=== PATIENT | male | born 1950 | race Caucasian/White ===

== ENCOUNTER 2017-12-27 12:17 | Emergency (ER) | payer MEDICARE ==
[~2017-12-27] VITALS: Ht 182.9 cm; Wt 100.0 kg
[~2017-12-27 12:17] MED LIST: HYDR-3533 PO; OMEP20TA PO; OXYC5 PO; PROT40TA PO; ZOFR4TAB3 PO; ZOFR4TAB3 SL; ZOLO20CO PO
[2017-12-27 12:22] VITALS: BP 163/90; PULSE 107; RESP 16; TEMP 96.1; O2SAT 100
[2017-12-27] MEDS ORDERED: ZOLO100T PO (12:29)
[2017-12-27] MEDS ORDERED: SODIUM CHLOR 0.9% 1000 ML INJ 1,000 ML IV SCH (12:32)
--- NOTE | 2017-12-27 12:33 | PD ---
HPI Chief Complaint: Pain: Acute or Chronic Time Seen by Provider: 12:27 Travel History International Travel<30 days: No Contact w/Intl Traveler<30days: No Traveled to known affect area: No History of Present Illness HPI 67-year-old male presents emergency department for evaluation of epigastric pain , acute onset this morning. Patient has had this in the past. He has been evaluated and fully worked up for it in the emergency department setting. He states that nobody told him what was wrong with him. He did not follow up with gastroenterology. He states this morning it began and then he ate and it became worse. He has been nauseous and vomiting. Pain is a 10 out of 10, sharp , stabbing. Denies any shortness of breath. Denies any hematemesis. No changes in bowel or bladder. No other symptoms to report. PFSH Past Medical History Anxiety: Yes Depression: Yes Cardiovascular Problems: Yes High Cholesterol: Yes Diminished Hearing: No Genitourinary: Yes Hypertension: Yes Psychiatric: Yes Tetanus Vaccination: > 5 Years Influenza Vaccination: No Past Surgical History Surgical History: No Previous Surgery Social History Alcohol Use: Yes Tobacco Use: No Substance Use: Yes (marijuana) Allergies-Medications (Allergen,Severity, Reaction): Coded Allergies: No Known Allergies (Verified Adverse Reaction, Unknown, 12/27/17) Reported Meds & Prescriptions Reported Meds & Active Scripts Active [place] (Hydrocodone-Acetaminophen) 5 Mg-325 Mg Tab 1 Tab PO Q6H PRN Omeprazole 40 Mg Cap 40 Mg PO DAILY Reported Zoloft (Sertraline HCl) 100 Mg Tab 100 Mg PO DAILY Review of Systems Except as stated in HPI: all other systems reviewed are Neg Physical Exam Narrative GENERAL: Well-nourished male patient, in no acute distress. SKIN: Focused skin assessment warm/dry. HEAD: Atraumatic. Normocephalic. EYES: Pupils equal and round. No scleral icterus. No injection or drainage. ENT: No nasal bleeding or discharge. Mucous membranes pink and moist. NECK: Trachea midline. No JVD. CARDIOVASCULAR: Regular rate and rhythm. No murmur appreciated. RESPIRATORY: No accessory muscle use. Clear to auscultation. Breath sounds equal bilaterally. GASTROINTESTINAL: Abdomen soft, nondistended. Epigastric tenderness to palpation. Hepatic and splenic margins not palpable. MUSCULOSKELETAL: No obvious deformities. No clubbing. No cyanosis. No edema. NEUROLOGICAL: Awake and alert. No obvious cranial nerve deficits. Motor grossly within normal limits. Normal speech. Data Data Last Documented VS Orders Orders Complete Blood Count With Diff (12/27/17 12:32) Comprehensive Metabolic Panel (12/27/17 12:32) Lipase (12/27/17 12:32) Prothrombin Time / Inr (Pt) (12/27/17 12:32) Act Partial Throm Time (Ptt) (12/27/17 12:32) Urinalysis - C+S If Indicated (12/27/17 12:32) Ct Abd/Pel W Iv Contrast(Rout) (12/27/17 12:32) Iv Access Insert/Monitor (12/27/17 12:32) Ecg Monitoring (12/27/17 12:32) Oximetry (12/27/17 12:32) Ondansetron Inj (Zofran Inj) (12/27/17 12:45) Sodium Chlor 0.9% 1000 Ml Inj (Ns 1000 M (12/27/17 12:32) Sodium Chloride 0.9% Flush (Ns Flush) (12/27/17 12:45) Ketorolac Inj (Toradol Inj) (12/27/17 12:45) Al-Mag Hy-Si 40-40-4 Mg/Ml Liq (Mag-Al P (12/27/17 12:45) Lidocaine 2% Viscous (Xylocaine 2% Visco (12/27/17 12:45) Iohexol 350 Inj (Omnipaque 350 Inj) (12/27/17 14:17) Sodium Chlor 0.9% 1000 Ml Inj (Ns 1000 M (12/27/17 14:45) Morphine Inj (Morphine Inj) (12/27/17 14:45) Potassium Chlor 10 Meq Premix (Kcl 10 Me (12/27/17 14:39) Ed Discharge Order (12/27/17 14:57) Labs Laboratory Tests Test 12/27/17 12:38 12/27/17 14:45 White Blood Count 12.1 TH/MM3 Red Blood Count 5.88 MIL/MM3 Hemoglobin 16.8 GM/DL Hematocrit 49.8 % Mean Corpuscular Volume 84.7 FL Mean Corpuscular Hemoglobin 28.6 PG Mean Corpuscular Hemoglobin Concent 33.7 % Red Cell Distribution Width 12.5 % Platelet Count 249 TH/MM3 Mean Platelet Volume 10.2 FL Neutrophils (%) (Auto) 75.8 % Lymphocytes (%) (Auto) 18.0 % Monocytes (%) (Auto) 5.3 % Eosinophils (%) (Auto) 0.3 % Basophils (%) (Auto) 0.6 % Neutrophils # (Auto) 9.2 TH/MM3 Lymphocytes # (Auto) 2.2 TH/MM3 Monocytes # (Auto) 0.6 TH/MM3 Eosinophils # (Auto) 0.0 TH/MM3 Basophils # (Auto) 0.1 TH/MM3 CBC Comment DIFF FINAL Differential Comment Prothrombin Time 11.1 SEC Prothromb Time International Ratio 1.1 RATIO Activated Partial Thromboplast Time 24.9 SEC Blood Urea Nitrogen 27 MG/DL Creatinine 1.42 MG/DL Random Glucose 195 MG/DL Total Protein 8.1 GM/DL Albumin 4.1 GM/DL Calcium Level 9.7 MG/DL Alkaline Phosphatase 79 U/L Aspartate Amino Transf (AST/SGOT) 62 U/L Alanine Aminotransferase (ALT/SGPT) 122 U/L Total Bilirubin 1.3 MG/DL Sodium Level 132 MEQ/L Potassium Level 3.1 MEQ/L Chloride Level 96 MEQ/L Carbon Dioxide Level 23.0 MEQ/L Anion Gap 13 MEQ/L Estimat Glomerular Filtration Rate 50 ML/MIN Lipase 85 U/L Urine Color YELLOW Urine Turbidity CLEAR Urine pH 6.0 Urine Specific [place] GREATER THAN 1.050 Urine Protein TRACE mg/dL Urine Glucose (UA) NEG mg/dL Urine Ketones 40 mg/dL Urine Occult Blood NEG Urine Nitrite NEG Urine Bilirubin NEG Urine Urobilinogen LESS THAN 2.0 MG/DL Urine Leukocyte Esterase NEG Urine RBC 1 /hpf Urine Squamous Epithelial Cells 1 /hpf Urine Mucus FEW /lpf Microscopic Urinalysis Comment CULT NOT INDICATED MDM Medical Decision Making Medical Screen Exam Complete: Yes Emergency Medical Condition: Yes Medical Record Reviewed: Yes Differential Diagnosis Gastritis versus indigestion versus pancreatitis versus cholecystitis Narrative Course 67-year-old male presents emergency department for evaluation. Patient appears without distress. He is reporting epigastric pain. He is treated for this. Laboratory Tests Test 12/27/17 12:38 12/27/17 14:45 White Blood Count 12.1 TH/MM3 Red Blood Count 5.88 MIL/MM3 Hemoglobin 16.8 GM/DL Hematocrit 49.8 % Mean Corpuscular Volume 84.7 FL Mean Corpuscular Hemoglobin 28.6 PG Mean Corpuscular Hemoglobin Concent 33.7 % Red Cell Distribution Width 12.5 % Platelet Count 249 TH/MM3 Mean Platelet Volume 10.2 FL Neutrophils (%) (Auto) 75.8 % Lymphocytes (%) (Auto) 18.0 % Monocytes (%) (Auto) 5.3 % Eosinophils (%) (Auto) 0.3 % Basophils (%) (Auto) 0.6 % Neutrophils # (Auto) 9.2 TH/MM3 Lymphocytes # (Auto) 2.2 TH/MM3 Monocytes # (Auto) 0.6 TH/MM3 Eosinophils # (Auto) 0.0 TH/MM3 Basophils # (Auto) 0.1 TH/MM3 CBC Comment DIFF FINAL Differential Comment Prothrombin Time 11.1 SEC Prothromb Time International Ratio 1.1 RATIO Activated Partial Thromboplast Time 24.9 SEC Blood Urea Nitrogen 27 MG/DL Creatinine 1.42 MG/DL Random Glucose 195 MG/DL Total Protein 8.1 GM/DL Albumin 4.1 GM/DL Calcium Level 9.7 MG/DL Alkaline Phosphatase 79 U/L Aspartate Amino Transf (AST/SGOT) 62 U/L Alanine Aminotransferase (ALT/SGPT) 122 U/L Total Bilirubin 1.3 MG/DL Sodium Level 132 MEQ/L Potassium Level 3.1 MEQ/L Chloride Level 96 MEQ/L Carbon Dioxide Level 23.0 MEQ/L Anion Gap 13 MEQ/L Estimat Glomerular Filtration Rate 50 ML/MIN Lipase 85 U/L Urine Color YELLOW Urine Turbidity CLEAR Urine pH 6.0 Urine Specific [place] GREATER THAN 1.050 Urine Protein TRACE mg/dL Urine Glucose (UA) NEG mg/dL Urine Ketones 40 mg/dL Urine Occult Blood NEG Urine Nitrite NEG Urine Bilirubin NEG Urine Urobilinogen LESS THAN 2.0 MG/DL Urine Leukocyte Esterase NEG Urine RBC 1 /hpf Urine Squamous Epithelial Cells 1 /hpf Urine Mucus FEW /lpf Microscopic Urinalysis Comment CULT NOT INDICATED Patient has some mild leukocytosis. CMP is with mild hyponatremia, hypokalemia , consistent with vomiting. BUN is 27 with a creatinine 1.42. Patient is given IV normal saline fluid. Patient has elevated liver enzymes. I have discussed the patient with my attending physician. He agrees this can be worked up further outpatient. Patient has not vomited since being in the emergency department. His pain is much less. He will be discharged at this time. Diagnosis Primary Impression: Epigastric abdominal pain Additional Impressions: Nausea Transaminitis Referrals: Structural Drafter Primary Care Physician Patient Instructions: Diet for Stomach Ulcers and Gastritis (ED), General Instructions Additional Instructions: Avoid acidic and abrasive foods Follow-up with her top executive Return immediately with any acute worsening symptoms Med/Other Pt SpecificInfo: Prescription(s) given Scripts Hydrocodone-Acetaminophen ([place]) 5 Mg-325 Mg Tab 1 TAB PO Q6H Y for PAIN GREATER THAN 5, #6 TAB 0 Refills Prov: Mag Posadas 12/27/17 Omeprazole (Omeprazole) 40 Mg Cap 40 MG PO DAILY, #30 CAP 0 Refills Prov: Mag Posadas 12/27/17 Disposition: 01 DISCHARGE HOME Condition: Stable Mag Posadas Dec 27, 2017 12:33
[2017-12-27 12:39] VITALS: RESP 20; O2SAT 100
[2017-12-27] MEDS ORDERED: LIDOCAINE VISCOUS 2% SOLN 15 ML UDC PO ONE (12:45)
[2017-12-27] MEDS ORDERED: KETOROLAC TROMETHAMINE 30 MG/ML (IVP) VIAL IVP ONE (12:45)
[2017-12-27] MEDS ORDERED: ONDANSETRON HCL 4 MG/2 ML VIAL IVP ONE (12:45)
[2017-12-27] MEDS ORDERED: SODIUM CHLORIDE 0.9% FLUSH 10 ML FLUSH IV FLUSH PRN (12:45)
[2017-12-27] MEDS ORDERED: ALUMINUM/MAGNESIUM/SIMETH 30 ML CUP PO ONE (12:45)
[2017-12-27 12:55] LABS: AUTOMATED NEUTROPHIL # 9.2 TH/MM3 (1.8-7.7); BASOPHIL # 0.1 TH/MM3 (0-0.2); BASOPHIL % 0.6 % (0.0-2.0); EOSINOPHIL % 0.3 % (0.0-4.0); HEMATOCRIT 49.8 % (39.0-51.0); HEMOGLOBIN 16.8 GM/DL (13.0-17.0); LYMPHOCYTE # 2.2 TH/MM3 (1.0-4.8); MEAN CELL VOLUME 84.7 FL (80.0-100.0); MEAN CORPUSCULAR HEMOGLOBIN 28.6 PG (27.0-34.0); MEAN CORPUSCULAR HGB CONC 33.7 % (32.0-36.0); MEAN PLATELET VOLUME 10.2 FL (7.0-11.0); MONO % 5.3 % (0.0-8.0); MONOCYTE # 0.6 TH/MM3 (0-0.9); NEUT % 75.8 % (16.0-70.0); PLATELET COUNT 249 TH/MM3 (150-450); RED BLOOD COUNT 5.88 MIL/MM3 (4.50-5.90); RED CELL DISTRIBUTION WIDTH 12.5 % (11.6-17.2); WHITE BLOOD COUNT 12.1 TH/MM3 (4.0-11.0)
[2017-12-27 13:04] LABS: INTERNATIONAL NORMALIZED RATIO 1.1 RATIO; PROTHROMBIN TIME - PATIENT 11.1 SEC (9.8-11.6)
[2017-12-27 13:14] LABS: ALBUMIN 4.1 GM/DL (3.4-5.0); ALT (GPT) 122 U/L (12-78); AST (GOT) 62 U/L (15-37); BLOOD UREA NITROGEN 27 MG/DL (7-18); CALCIUM 9.7 MG/DL (8.5-10.1); CHLORIDE 96 MEQ/L (98-107); CREATININE 1.42 MG/DL (0.60-1.30); GLOMERULAR FILTRATION RATE 50 ML/MIN (>89); GLUCOSE,RANDOM 195 MG/DL (74-106); SODIUM (NA) 132 MEQ/L (136-145)
[2017-12-27 13:17] LABS: ALKALINE PHOSPHATASE 79 U/L (45-117); TOTAL BILIRUBIN ADULT 1.3 MG/DL (0.2-1.0); TOTAL PROTEIN 8.1 GM/DL (6.4-8.2)
[2017-12-27] MEDS ORDERED: IOHEXOL 350 MG/ML 10 ML VIAL (for RAD DIAG) IVCONTRAST ONE (14:17)
--- NOTE | 2017-12-27 14:30 | RADRPT ---
EXAM DATE/TIME: 12/27/2017 14:02 [facility] COMPARISON: CT ABDOMEN & PELVIS W/O CONTRAST, April 12, 2016, 9:27. INDICATIONS : Abdomen pain IV CONTRAST: 94 cc Omnipaque 350 (iohexol) IV ORAL CONTRAST: No oral contrast ingested. RADIATION DOSE: 7.57 CTDIvol (mGy) MEDICAL HISTORY : Cardiovascular disease. Hypertension. SURGICAL HISTORY : None. ENCOUNTER: Initial ACUITY: 1 day PAIN SCALE: 6/10 LOCATION: Abdomrn TECHNIQUE: Volumetric scanning of the abdomen and pelvis was performed. Using automated exposure control and ad justment of the mA and/or kV according to patient size, radiation dose was kept as low as reasonably achievable to obtain optimal diagnostic quality images. DICOM format image data is available electro nically for review and comparison. FINDINGS: There is minimal linear atelectasis or scarring at the bases. Mild coronary calcifications. No acute findings in the liver, spleen, adrenals, kidneys or pancreas. No calcified gallstones or cristel iary ductal dilatation. No acute bony abnormalities. CONCLUSION: 1. No acute findings in abdomen and pelvic CT. Emeterio Child MD on December 27, 2017 at 14:22 Board Certified Radiologist. This report was verified electronically.
[2017-12-27 14:37] VITALS: BP 177/94; PULSE 92; RESP 16; TEMP 98; O2SAT 99
[2017-12-27] MEDS ORDERED: POTASSIUM CHLOR 10 MEQ PREMIX 100 ML IV STA (14:39)
[2017-12-27] MEDS ORDERED: SODIUM CHLOR 0.9% 1000 ML INJ 1,000 ML IV ONE (14:45)
[2017-12-27] MEDS ORDERED: MORPHINE SULFATE 2 MG/ML INJ IV PUSH ONE (14:45)
[2017-12-27] MEDS ORDERED: OMEP40CA2 PO (15:00)
[2017-12-27] MEDS ORDERED: NORC5TAB PO (15:01)
[2017-12-27 15:08] VITALS: RESP 16
[2017-12-27 15:33] LABS: BILIRUBIN, URINE NEG (NEG); BLOOD, URINE NEG (NEG); GLUCOSE,URINE NEG (NEG); KETONE, URINE 40 mg/dL (NEG); MUCUS URINE FEW /lpf (OCC); NITRITE,URINE NEG (NEG); SQUAMOUS EPITHELIAL CELL URINE 1 /hpf (0-5); URINE COLOR YELLOW (YELLW/STRAW); URINE LEUKOCYTE ESTERASE NEG (NEG)
[2017-12-27 16:20] VITALS: BP 130/81; TEMP 97.8
== END 2017-12-27 16:20 | disposition home or self-care (01) ==
LOC: NEPE 12:17
DX: R10.13 Epigastric pain (principal); R11.0 Nausea; R74.0 Nonspecific elevation of levels of transaminase and lactic acid dehydrogenase [LDH]; E87.6 Hypokalemia; E87.1 Hypo-osmolality and hyponatremia; D72.829 Elevated white blood cell count, unspecified; I10 Essential (primary) hypertension; E78.00 Pure hypercholesterolemia, unspecified; F12.90 Cannabis use, unspecified, uncomplicated
CPT/HCPCS: 74177; 80053; 81001; 83690; 85025; 85610; 85730; 96361; 96365; 96375; 99285; J1885; J2270; J2405; J3480; J7030; Q9967

== ENCOUNTER 2018-10-03 04:49 | Inpatient (IN) ==
[2018-10-03] MEDS ORDERED: Morphine Inj 4 MG/ML Vial IV.PUSH ONE (05:03)
[2018-10-03] MEDS ORDERED: Sod Chloride 0.9% Inj 1,000 ML IV.SIG ONE (05:03)
[2018-10-03 05:24] LABS: Baso # (Auto) 0.1 th/mm3 (0.0-0.2); Baso % (Auto) 0.4 % (0.0-2.0); Hematocrit 48.2 % (39.0-51.0); Lymph % (Auto) 11.4 % (9.0-44.0); Mean Corpuscular HGB Conc 35.3 % (32.0-36.0); Mean Corpuscular Hemoglobin 30.1 pg (27.0-34.0); Mean Corpuscular Volume 85.2 fL (80.0-100.0); Mean Platelet Volume 9.3 fL (7.0-11.0); Mono # (Auto) 0.9 th/mm3 (0.0-0.9); Mono % (Auto) 5.2 % (0.0-8.0); Neut # (Auto) 14.3 th/mm3 (1.8-7.7); Platelet Count 302 th/mm3 (150-450); Red Blood Count 5.66 mil/mm3 (4.50-5.90); Red Cell Distribution Width 13.9 % (11.6-17.2); White Blood Count 17.3 th/mm3 (4.0-11.0)
[2018-10-03 05:29] VITALS: RESP 17; TEMP 98
[2018-10-03 05:35] LABS: Alanine Aminotransferase 54 U/L (12-78); Albumin 4.9 g/dL (3.4-5.0); Anion Gap 11 meq/L (5-15); Aspartate Aminotransferase 57 U/L (15-37); Blood Urea Nitrogen 57 mg/dL (7-18); Calcium 10.3 mg/dL (8.5-10.1); Carbon Dioxide 23.6 meq/L (21.0-32.0); Chloride 106 meq/L (98-107); Glomerular Filtration Rate 25 mL/min (>89); Glucose,Random 235 mg/dL (74-106); Lipase 111 U/L (73-393); Magnesium 3.9 mg/dL (1.5-2.5); Potassium 4.1 meq/L (3.5-5.1); Sodium 141 meq/L (136-145)
[2018-10-03 05:39] LABS: Alkaline Phosphatase 103 U/L (45-117); Total Protein 9.7 g/dL (6.4-8.2); Troponin I 0.31 ng/mL (0.02-0.05)
[2018-10-03 05:43] LABS: INR 0.9 Ratio; Prothrombin Time 9.6 sec (9.8-11.6)
[2018-10-03] MEDS ORDERED: Acetaminophen 325 MG Tablet PO PRN (05:45)
[2018-10-03] MEDS ORDERED: Sod Chloride 0.9% Inj 1,000 ML IV.SIG SCH ×2 (05:45→06:00)
[2018-10-03] MEDS ORDERED: Sod Chloride 0.9% Inj 1,000 ML IV.CONT SCH (05:45)
[2018-10-03] MEDS ORDERED: Naloxone Inj 0.4 MG/ML Vial IV.PUSH PRN (05:47)
[2018-10-03] MEDS ORDERED: HYDROmorphone PF Inj 1 MG/ML Ampul IV.PUSH PRN (05:47)
--- NOTE | 2018-10-03 05:50 | CT ---
EXAM DATE: 10/03/2018 5:24 AM EST AGE/SEX: 68 years / Male INDICATIONS: Mid abdominal pain X 3 days. CLINICAL DATA: This is the patient's initial encounter. Patient reports that signs and symptoms have been present for 3 days and indicates a pain score of 8/10. MEDICAL/SURGICAL HISTORY: Gastroesophageal reflux disease. Hypercholesterolemia. Gastric ulcer None. RADIATION DOSE: 9.76 CTDI (mGy) [place] [facility] [place]/12/2016. . TECHNIQUE: Multiple contiguous axial images were obtained through the abdomen. Images were obtained using multiple row detector helical technique. Using automated exposure control and adjustment of the mA and/or kV according to patient size, radiation dose was kept as low as reasonably achievable to o btain optimal diagnostic quality images. DICOM format image data is available electronically for rev iew and comparison. FINDINGS: Lower Lungs: The visualized lower lungs are clear. Liver: The liver has a homogeneous density without space-occupying lesion. There is no dilation of th e biliary tree. The gallbladder is unremarkable in appearance. Spleen: Homogeneous density without enlargement. Pancreas: Unremarkable without mass or calcification. Kidneys: Normal in size and shape. No evidence of mass or hydronephrosis. Adrenal Glands: Unremarkable. Aorta: The aorta and proximal iliac vessels are grossly unremarkable without aneurysmal dilation. Bowel/Mesentery: No oral contrast was given limiting the sensitivity exam. There are multiple air-flu id levels throughout the colon. There is no focal inflammatory change. The small bowel is decompresse d. There is no free air or fluid. The bowel loops are grossly unremarkable. The cecum and sigmoid co brian have a normal configuration. Abdominal Wall: Intact. Retroperitoneum: No evidence of adenopathy in the retrocrural, para-aortic, or deep pelvic regions. Bladder: Contours are smooth. Reproductive Organs: No abnormal masses or calcifications seen. Inguinal: The inguinal region is unremarkable without evidence of adenopathy. Bony Structures: Unremarkable. CONCLUSION: 1. Nonspecific bowel gas pattern most consistent with ileus and/or gastroenteritis. 2. Unremarkable gallbladder. Electronically signed by: Jaswinder Sol MD Board Certified Radiologist 10/03/2018 5:49 AM EST
[2018-10-03] MEDS ORDERED: Heparin - SQ 10,000 UNITS/ML Vial SQ SCH (06:00)
--- NOTE | 2018-10-03 06:04 | ED ---
HPI General Chief Complaint: Abdominal Pain Stated Complaint: Abdominal Pain Time Seen by Provider: 10/03/18 05:03 Source: patient Mode of arrival: ambulatory Limitations: no limitations History of Present Illness HPI narrative: 68-year-old male came to the emergency room with history of severe abdominal pain for past 2 days. Patient says that he has had these kind of pains recurring for past 3 years. He usually does not drink alcohol but he drank a lot of margaritas starting from September 22 - September 28. Patient says that in past 2 days he did not eat or drink anything and hence has not vomited. He smoked marijuana on [place]. Patient says that he thinks he has cannabis hyperemesis syndrome and hence cut down a lot on smoking marijuana. No history of diarrhea. He had a bowel movement this morning. He appeared very anxious. Patient had a heart rate in 160s in triage. He was also extremely hypertensive. Patient describes the location of his pain all over his abdomen with no radiation. No aggravating or relieving symptoms identified. Patient says currently his pain is 9 out of 10. Related Data Home Medications Medication Instructions Recorded Confirmed atorvastatin 20 mg PO DAILY 10/03/18 10/03/18 hydrocodone-acetaminophen 1 tab PO Q6H 10/03/18 10/03/18 pantoprazole 40 mg PO DAILY 10/03/18 10/03/18 sertraline 200 mg PO DAILY 10/03/18 10/03/18 Allergies Allergy/AdvReac Type Severity Reaction Status Date / Time No Known Allergies Allergy Verified 10/03/18 05:05 Review of Systems ROS: all other systems reviewed are negative [facility] Medical History Medical History Depression (Acute) GERD (gastroesophageal reflux disease) (Acute) High cholesterol (Acute) Hx of gastric ulcer (Acute) Surgical History Surgical History No history of previous surgery (Acute) Social History Social History Substance History: Active Abuse Second Hand Smoke Exposure: No Smoking Status: Never smoker How Often Do You Have a Drink Containing Alcohol: Monthly or less Recent Travel in [facility] within the Last 8 Weeks: No Recent Out of Country Travel within the Last 8 Weeks: No Substance Abuse Detail Marijuana: Substance Use Status: Active Route Used Substance Abuse: Inhalation Reason for Use: Get High Immunization History Tetanus Immunization: Unsure Exam Narrative Exam Narrative: GENERAL: Awake, alert, anxious, significant distress SKIN: Focused skin assessment warm/dry. HEAD: Atraumatic. Normocephalic. EYES: Pupils equal and round. No scleral icterus. No injection or drainage. ENT: No nasal bleeding or discharge. Dry mucous membrane. NECK: Trachea midline. No JVD. CARDIOVASCULAR: Regular rate and rhythm. No murmur appreciated. RESPIRATORY: No accessory muscle use. Clear to auscultation. Breath sounds equal bilaterally. GASTROINTESTINAL: Abdomen soft, non-tender, nondistended. Hepatic and splenic margins not palpable. MUSCULOSKELETAL: No obvious deformities. No clubbing. No cyanosis. No edema. NEUROLOGICAL: Awake and alert. No obvious cranial nerve deficits. Motor grossly within normal limits. Normal speech. PSYCHIATRIC: Appropriate mood and affect; insight and judgment normal. Course Initial Documented Vital Signs Temperature 97.2 F L 10/03/18 04:52 Pulse Rate 162 H 10/03/18 04:52 Respiratory Rate 20 10/03/18 04:52 Blood Pressure 197/103 H 10/03/18 04:52 Pulse Oximetry 97 10/03/18 04:52 Last Documented Vital Signs Temperature 98 F 10/03/18 05:28 Pulse Rate 98 H 10/03/18 05:28 Respiratory Rate 17 10/03/18 05:28 Blood Pressure 199/93 H 10/03/18 05:28 Pulse Oximetry 95 10/03/18 05:28 Critical Care Time Critical Care Time: Yes Total Critical Care Time: 3 Attestation: Aggregate critical care time was 30 minutes. Time to perform other separately billable procedures was not included in the critical care time. My time did not include minutes spent treating any other patients simultaneously or on activities that did not directly contribute to the patient's treatment. The services I provided to this patient were to treat and/or prevent clinically significant deterioration that could result in: Severe dehydration, fluid resuscitation I provided critical care services requiring my management, as noted below: Chart data review, documentation time, medication orders and management, vital sign assessments/reviewing monitor data, ordering and reviewing lab tests, ordering and interpreting/reviewing x-rays and diagnostic studies, care of the patient and discussion of the patient with the admitting physicians. Medical Decision Making MDM Narrative Medical decision making narrative: 6:01 AM patient was given IV fluid bolus. After 1 L of IV fluid bolus his heart rate came down to 95 and the repeat EKG showed normal sinus rhythm. Blood test results are back and some of the concerning values include leukocytosis with a significant left shift, acute renal failure as well as elevated troponin. In my opinion patient could be in sepsis given the multiorgan involvement. CT scan was ordered without contrast and has been read by the radiologist as possible ileus. I have ordered lactic acid and blood culture and 1/3 L of IV fluid bolus. I discussed the case with the hospitalist was accepted the patient. Medical Screen Exam Complete: Yes Emergency Medical Condition: Yes Lab Data Result diagrams: 10/03/18 05:10 10/03/18 05:10 Lab Results 10/03/18 10/03/18 10/03/18 Range/Units 05:10 05:10 05:10 WBC 17.3 H (4.0-11.0) th/mm3 RBC 5.66 (4.50-5.90) mil/mm3 Hgb 17.0 (13.0-17.0) gm/dL Hct 48.2 (39.0-51.0) % MCV 85.2 (80.0-100.0) fL MCH 30.1 (27.0-34.0) pg MCHC 35.3 (32.0-36.0) % RDW 13.9 (11.6-17.2) % Plt Count 302 (150-450) th/mm3 MPV 9.3 (7.0-11.0) fL Neut % (Auto) 83.0 H (16.0-70.0) % Lymph % (Auto) 11.4 (9.0-44.0) % [place] % (Auto) 5.2 (0.0-8.0) % Eos % (Auto) 0.0 (0.0-4.0) % Baso % (Auto) 0.4 (0.0-2.0) % Neut # (Auto) 14.3 H (1.8-7.7) th/mm3 Lymph # (Auto) 2.0 (1.0-4.8) th/mm3 [place] # (Auto) 0.9 (0.0-0.9) th/mm3 Eos # (Auto) 0.0 (0.0-0.4) th/mm3 Baso # (Auto) 0.1 (0.0-0.2) th/mm3 WBC Differential . Differential Comment Auto diff final PT 9.6 L (9.8-11.6) sec INR 0.9 Ratio Sodium 141 (136-145) meq/L Potassium 4.1 (3.5-5.1) meq/L Chloride 106 (98-107) meq/L Carbon Dioxide 23.6 (21.0-32.0) meq/L Anion Gap 11 (5-15) meq/L BUN 57 H (7-18) mg/dL Creatinine 2.58 H (0.60-1.30) mg/dL Estimated GFR 25 L (>89) mL/min Random Glucose 235 H (74-106) mg/dL Calcium 10.3 H (8.5-10.1) mg/dL Magnesium 3.9 H (1.5-2.5) mg/dL Total Bilirubin 0.6 (0.2-1.0) mg/dL AST 57 H (15-37) U/L ALT 54 (12-78) U/L Alkaline Phosphatase 103 (45-117) U/L Troponin I 0.31 H (0.02-0.05) ng/mL Total Protein 9.7 H (6.4-8.2) g/dL Albumin 4.9 (3.4-5.0) g/dL Lipase 111 (73-393) U/L Blood Type Blood Type Recheck 10/03/18 Range/Units 05:10 WBC (4.0-11.0) th/mm3 RBC (4.50-5.90) mil/mm3 Hgb (13.0-17.0) gm/dL Hct (39.0-51.0) % MCV (80.0-100.0) fL MCH (27.0-34.0) pg MCHC (32.0-36.0) % RDW (11.6-17.2) % Plt Count (150-450) th/mm3 MPV (7.0-11.0) fL Neut % (Auto) (16.0-70.0) % Lymph % (Auto) (9.0-44.0) % [place] % (Auto) (0.0-8.0) % Eos % (Auto) (0.0-4.0) % Baso % (Auto) (0.0-2.0) % Neut # (Auto) (1.8-7.7) th/mm3 Lymph # (Auto) (1.0-4.8) th/mm3 [place] # (Auto) (0.0-0.9) th/mm3 Eos # (Auto) (0.0-0.4) th/mm3 Baso # (Auto) (0.0-0.2) th/mm3 WBC Differential Differential Comment PT (9.8-11.6) sec INR Ratio Sodium (136-145) meq/L Potassium (3.5-5.1) meq/L Chloride (98-107) meq/L Carbon Dioxide (21.0-32.0) meq/L Anion Gap (5-15) meq/L BUN (7-18) mg/dL Creatinine (0.60-1.30) mg/dL Estimated GFR (>89) mL/min Random Glucose (74-106) mg/dL Calcium (8.5-10.1) mg/dL Magnesium (1.5-2.5) mg/dL Total Bilirubin (0.2-1.0) mg/dL AST (15-37) U/L ALT (12-78) U/L Alkaline Phosphatase (45-117) U/L Troponin I (0.02-0.05) ng/mL Total Protein (6.4-8.2) g/dL Albumin (3.4-5.0) g/dL Lipase (73-393) U/L Blood Type O Positive Blood Type Recheck Required Imaging Data Radiologist's impression: Abdomen/Pelvis CT 10/03/18 05:03 CONCLUSION: 1. Nonspecific bowel gas pattern most consistent with ileus and/or gastroenteritis. 2. Unremarkable gallbladder. ECG Data Attestation: I personally reviewed and interpreted this ECG as follows: Interpretation: Twelve-lead EKG was reviewed by me. Normal sinus rhythm, tachycardia, left axis deviation, nonspecific ST-T wave changes. Heart rate of 155 bpm. Discharge Plan Discharge Disposition Patient Disposition: ED Admit(ED Internal Use Only) Discharge Order Discharge Orders: ED Use Only Admit Order (Routine); Ordered 10/03/18 Ordered By: Gerson Ayala Physicians Team ED Provider: Gerson Ayala Primary Care Provider: Primary Care Yenny Colón Rxs /Orders / Referrals /Forms Prescriptions: No Action atorvastatin 20 mg Tablet 20 mg PO DAILY RF: 0 hydrocodone-acetaminophen 5-325 mg Tablet 1 tab PO Q6H RF: 0 sertraline 100 mg Tablet 200 mg PO DAILY RF: 0 pantoprazole 40 mg Tablet,Delayed Release (Dr/Ec) 40 mg PO DAILY RF: 0 Discharge Interventions Interventions: Vital Signs Last Done: 10/03/18 05:28 Status ED Status: With Doctor
[2018-10-03 06:11] VITALS: BP 199/93; PULSE 98; O2SAT 95
[2018-10-03] MEDS ORDERED: Docusate Sodium 100 MG Capsule PO SCH (09:00)
--- NOTE | 2018-10-03 19:55 | ECG ---
Date Performed: 10/03/2018 Time Performed: 05:02:20 PTAGE: 68 years EKG: Supraventricular tachycardia, likely paroxysmal, although sinus tachycardia cannot be rule out Slight right ventricular conduction disturbance MARKED LEFT AXIS DEVIATION NONSPECIFIC ST & T-WAV E ABNORMALITY Compared to previous tracing, the marked tachycardia is new. Clinical correlation is re commended ABNORMAL ECG PREVIOUS TRACING : 05/06/2015 07.30 DOCTOR: Donny Vazquez Interpretating Date/Time 10/03/2018 19:54:06
--- NOTE | 2018-10-03 19:56 | ECG ---
Date Performed: 10/03/2018 Time Performed: 05:53:09 PTAGE: 68 years EKG: Sinus rhythm INCOMPLETE RIGHT BUNDLE BRANCH BLOCK NONSPECIFIC T-WAVE ABNORMALITY Compared to previous tracing, ap prox. 51 minutes later, HR has decreased from 155 to 95 BORDERLINE ECG NO PREVIOUS TRACING DOCTOR: Donny Vazquez Interpretating Date/Time 10/03/2018 19:54:37
--- NOTE | 2018-10-03 22:55 | P.HPIM ---
History of Present Illness Primary Care Physician: No Primary Care Physician Inpatient Certification Inpatient Certification: I certify that the inpatient services were ordered in accordance with Medicare regulations governing the order. This includes certification that hospital inpatient services are reasonable and necessary and in the case of services not specified as inpatient-only under 42 CFR 419.22(n), that they are appropriately provided as inpatient services in accordance to with the 2-midnight benchmark under 43 CFR 412.3(e) Estimated Total Length of Stay (Days): 4 Plans for Post Hospital Care: Home [facility] Medical History Medical History Depression (Acute) GERD (gastroesophageal reflux disease) (Acute) High cholesterol (Acute) Hx of gastric ulcer (Acute) Surgical History Surgical History No history of previous surgery (Acute) Social History Social History Substance History: No History of Abuse Second Hand Smoke Exposure: No Smoking Status: Never smoker How Often Do You Have a Drink Containing Alcohol: Monthly or less Recent Travel in [place] within the Last 8 Weeks: No Recent Out of Country Travel within the Last 8 Weeks: No Substance Abuse Detail Marijuana: Substance Use Status: Active Route Used Substance Abuse: Inhalation Reason for Use: Get High Immunization History Tetanus Immunization: Unsure Medications and Allergies Allergies Allergy/AdvReac Type Severity Reaction Status Date / Time No Known Allergies Allergy Verified 10/03/18 05:05 Home Medications Medication Instructions Recorded Confirmed Type atorvastatin 20 mg PO DAILY 10/03/18 10/03/18 History hydrocodone-acetaminophen 1 tab PO Q6H 10/03/18 10/03/18 History pantoprazole 40 mg PO DAILY 10/03/18 10/03/18 History sertraline 200 mg PO DAILY 10/03/18 10/03/18 History Active Medications: Active Medications Acetaminophen (Tylenol) 650 mg PO Q4H PRN PRN Reason: Temp > 100.4 Docusate Sodium (Colace) 100 mg PO TID PEPE Heparin Sodium (Porcine) (Heparin Inj) 5,000 units SQ Q8H PEPE Hydromorphone HCl (Dilaudid Pf Inj) 1 mg IV.PUSH Q3H PRN PRN Reason: PAIN 6-10;IF UNABLE TO TAKE PO Sodium Chloride (Ns Inj) 1,000 mls @ 100 mls/hr IV.CONT .Q10H PEPE Naloxone HCl (Narcan Inj) 0.4 mg IV.PUSH UNSCH PRN PRN Reason: SEE LABEL COMMENTS Ondansetron HCl (Zofran Inj) 4 mg IV.PUSH Q6H PRN PRN Reason: NAUSEA OR VOMITING Oxycodone HCl (Roxicodone) 5 mg PO Q4H PRN PRN Reason: PAIN SCALE 3 TO 5 Sodium Chloride (Ns Flush) 2 ml IV.FLUSH PRN PRN PRN Reason: FLUSH AFTER USING IV ACCESS Sodium Chloride (Ns Flush) 2 ml IV.FLUSH BID PEPE Sodium Chloride (Ns Flush) 2 ml IV.FLUSH PRN PRN PRN Reason: FLUSH AFTER USING IV ACCESS Physical Exam Vital signs: Last Vital Signs Temp 98 F 10/03/18 05:28 Pulse 90 10/03/18 06:06 Resp 17 10/03/18 06:07 BP 170/91 H 10/03/18 06:06 Pulse Ox 96 10/03/18 06:06 Intake & Output 10/01/18 10/02/18 10/03/18 10/04/18 06:59 06:59 06:59 06:59 Intake Total 1999 Balance 1999 Weight 97.522 kg Results Labs CBC & Chem 7: 10/03/18 05:10 10/03/18 05:10 Imaging Impressions Abdomen/Pelvis CT 10/03/18 05:03 CONCLUSION: 1. Nonspecific bowel gas pattern most consistent with ileus and/or gastroenteritis. 2. Unremarkable gallbladder. Caprini VTE Risk Assessment Caprini Risk Assessment Model: Point Value = 1 Point Value = 2 Point Value = 3 Point Value = 5 Age 41-60 Minor surgery BMI > 25 kg/m2 Swollen legs Varicose veins or History of unexplained or recurrent spontaneous Oral contraceptives or hormone replacement Sepsis (< 1 month) Serious lung disease, including pneumonia (< 1 month) Abnormal pulmonary function Acute myocardial infarction Congestive heart failure (< 1 month) History of inflammatory bowel disease Medical patient at bed rest Age 61-74 Arthroscopic surgery Major open surgery (> 45 min) Laparoscopic surgery (> 45 min) Malignancy Confined to bed (> 72 hours) Immobilizing plaster cast Central venous access Age >= 75 History of VTE Family history of VTE Factor V Leiden Prothrombin 10200L Lupus anticoagulant Anticardiolipin antibodies Elevated serum homocysteine Heparin-induced thrombocytopenia Other congenital or acquired thrombophilia Stroke (< 1 month) Elective arthroplasty Hip, pelvis, or leg fracture Acute spinal cord injury (< 1 month) Prophylaxis Regimen: Total Risk Factor Score Risk Level Prophylaxis Regimen 0-1 Low Early ambulation 2 Moderate Order ONE of the following: *Sequential Compression Device (SCD) *Heparin 5000 units SQ BID 3-4 Higher Order ONE of the following medications: *Heparin 5000 units SQ TID *Enoxaparin/Lovenox 40 mg SQ daily (WT < 150 kg, CrCl > 30 mL/min) *Enoxaparin/Lovenox 30 mg SQ daily (WT < 150 kg, CrCl > 10-29 mL/min) *Enoxaparin/Lovenox 30 mg SQ BID (WT < 150 kg, CrCl > 30 mL/min) AND/OR *Sequential Compression Device (SCD) 5 or more Highest Order ONE of the following medications: *Heparin 5000 units SQ TID (Preferred with Epidurals) *Enoxaparin/Lovenox 40 mg SQ daily (WT < 150 kg, CrCl > 30 mL/min) *Enoxaparin/Lovenox 30 mg SQ daily (WT < 150 kg, CrCl > 10-29 mL/min) *Enoxaparin/Lovenox 30 mg SQ BID (WT < 150 kg, CrCl > 30 mL/min) AND *Sequential Compression Device (SCD)
== END 2018-10-03 08:00 | disposition left against medical advice (07) | DRG 392 ==
LOC: NEPC 04:49 → NEDA 06:07
PROVIDERS: ADMIT Internal Medicine; ATTEND Internal Medicine
CPT/HCPCS: 74176; 80053; 83605; 83690; 83735; 84484; 85025; 85610; 86850; 86900; 86901; 87040; 90774; 90775; 90784; 93005; 96374; 96375; 99291; C8952; J2270; J2405; J7030

== ENCOUNTER 2018-10-03 17:46 | Inpatient (IN) ==
[2018-10-03] MEDS ORDERED: Sodium Chlor 0.9% Inj 500 ML IV.SIG ONE (19:20)
[2018-10-03] MEDS ORDERED: HYDROmorphone PF Inj 2 MG/ML Vial IV.PUSH ONE (19:20)
--- NOTE | 2018-10-03 19:24 | ED ---
HPI General Chief Complaint: Abdominal Pain Stated Complaint: stomach pain/recheck Time Seen by Provider: 10/03/18 18:17 Source: patient Mode of arrival: ambulatory Limitations: no limitations History of Present Illness HPI narrative: 68-year-old male presents the ED for evaluation of 10 abdominal pain. Onset about an hour before presentation. Pain is sharp, diffuse, no alleviating or exacerbating factors reported. He reports associated nausea. He denies fever or chills. He states that he is urinated normally today. He states that he has not had a bowel movement. Patient was seen in the emergency room last night, admitted to the hospital today but left AGAINST MEDICAL ADVICE. He states that he left this morning because he was feeling fine. He states he went home, drank some Gatorade and slept for about 10 hours. He states that when he awoke his abdomen "locked up." He states that he is ready to be admitted to the hospital. Related Data Home Medications Medication Instructions Recorded Confirmed atorvastatin 20 mg PO DAILY 10/03/18 10/03/18 hydrocodone-acetaminophen 1 tab PO Q6H 10/03/18 10/03/18 pantoprazole 40 mg PO DAILY 10/03/18 10/03/18 sertraline 200 mg PO DAILY 10/03/18 10/03/18 Allergies Allergy/AdvReac Type Severity Reaction Status Date / Time No Known Allergies Allergy Verified 10/03/18 05:05 Review of Systems ROS: all other systems reviewed are negative [facility] Medical History Medical History Depression (Acute) GERD (gastroesophageal reflux disease) (Acute) High cholesterol (Acute) Hx of gastric ulcer (Acute) Surgical History Surgical History No history of previous surgery (Acute) Social History Social History Substance History: No History of Abuse Second Hand Smoke Exposure: No Smoking Status: Never smoker How Often Do You Have a Drink Containing Alcohol: Monthly or less Recent Travel in [facility] within the Last 8 Weeks: No Recent Out of Country Travel within the Last 8 Weeks: No Immunization History Tetanus Immunization: Unsure Exam Narrative Exam Narrative: GENERAL: Well-nourished, well-developed white male in no acute distress. SKIN: Focused skin assessment warm/dry. HEAD: Atraumatic. Normocephalic. EYES: Pupils equal and round. No scleral icterus. No injection or drainage. ENT: No nasal bleeding or discharge. Mucous membranes pink and moist. NECK: Trachea midline. No JVD. CARDIOVASCULAR: Regular rate and rhythm. No murmur appreciated. RESPIRATORY: No accessory muscle use. Clear to auscultation. Breath sounds equal bilaterally. GASTROINTESTINAL: Abdomen distended, diffusely tender. Hepatic and splenic margins not palpable. Active bowel sounds. MUSCULOSKELETAL: No obvious deformities. No clubbing. No cyanosis. No edema. NEUROLOGICAL: Awake and alert. No obvious cranial nerve deficits. Motor grossly within normal limits. Normal speech. PSYCHIATRIC: Anxious mood and affect; insight and judgment normal. Course Initial Documented Vital Signs Temperature 98.6 F 10/03/18 18:07 Pulse Rate 94 H 10/03/18 18:07 Respiratory Rate 18 10/03/18 18:07 Blood Pressure 236/123 H 10/03/18 18:07 Pulse Oximetry 97 10/03/18 18:07 Last Documented Vital Signs Temperature 99.4 F 10/04/18 02:14 Pulse Rate 72 10/04/18 02:43 Respiratory Rate 16 10/04/18 02:14 Blood Pressure 142/88 H 10/04/18 02:16 Pulse Oximetry 95 10/04/18 02:16 Medical Decision Making [facility] Narrative Medical decision making narrative: 68-year-old male presents the ED for evaluation of 10/10 abdominal pain. Patient was seen earlier today with similar complaint but left AGAINST MEDICAL ADVICE. On presentation BP 226/123. Physical exam reveals protuberant belly that is diffusely tender, otherwise unremarkable. IV was established. Patient was administered 10 mg of labetalol. Recheck BP 218/108. Patient was administered a second dose of labetalol. BP 186/91. CBC with WBC of 12.3, improved from this morning. CMP with BUN of 38, creatinine 1.37, again improved from this morning. EKG without acute changes. Troponin 0.20, decreased from 0.[address] abdomen pelvis with no acute findings. I spoke with Dr. Mckeon who agrees to accept the patient to the medicine service. Please see medicine notes for disposition. Medical Screen Exam Complete: Yes Emergency Medical Condition: Yes Lab Data Result diagrams: 10/04/18 01:42 10/04/18 01:42 Lab Results 10/03/18 10/03/18 10/03/18 Range/Units 19:35 19:35 19:35 WBC 12.3 H (4.0-11.0) th/mm3 RBC 5.16 (4.50-5.90) mil/mm3 Hgb 14.9 D (13.0-17.0) gm/dL Hct 43.6 (39.0-51.0) % MCV 84.5 (80.0-100.0) fL MCH 29.0 (27.0-34.0) pg MCHC 34.3 (32.0-36.0) % RDW 13.8 (11.6-17.2) % Plt Count 226 (150-450) th/mm3 MPV 9.4 (7.0-11.0) fL Neut % (Auto) 72.9 H (16.0-70.0) % Lymph % (Auto) 20.5 (9.0-44.0) % Jasper % (Auto) 6.5 (0.0-8.0) % Eos % (Auto) 0.0 (0.0-4.0) % Baso % (Auto) 0.1 (0.0-2.0) % Neut # (Auto) 9.0 H (1.8-7.7) th/mm3 Lymph # (Auto) 2.5 (1.0-4.8) th/mm3 Jasper # (Auto) 0.8 (0.0-0.9) th/mm3 Eos # (Auto) 0.0 (0.0-0.4) th/mm3 Baso # (Auto) 0.0 (0.0-0.2) th/mm3 WBC Differential . Differential Comment Auto diff final Sodium 142 (136-145) meq/L Potassium 3.8 (3.5-5.1) meq/L Chloride 110 H (98-107) meq/L Carbon Dioxide 23.1 (21.0-32.0) meq/L Anion Gap 9 (5-15) meq/L BUN 38 H (7-18) mg/dL Creatinine 1.37 H (0.60-1.30) mg/dL Estimated GFR 52 L (>89) mL/min Random Glucose 181 H (74-106) mg/dL Lactic Acid 1.6 (0.4-2.0) mmol/L Calcium 9.1 D (8.5-10.1) mg/dL Magnesium 2.9 H D (1.5-2.5) mg/dL Total Bilirubin 0.8 (0.2-1.0) mg/dL AST 91 H (15-37) U/L ALT 49 (12-78) U/L Alkaline Phosphatase 79 (45-117) U/L Troponin I 0.20 H (0.02-0.05) ng/mL Total Protein 7.9 D (6.4-8.2) g/dL Albumin 4.0 D (3.4-5.0) g/dL Lipase 102 (73-393) U/L Urine Color (Yellw/Straw) Urine Clarity (Clear) Urine pH (5.0-8.5) Ur Specific Thorp (1.002-1.035) Urine Protein (Neg-Trace) mg/dL Urine Glucose (UA) (Negative) mg/dL Urine Ketones (Negative) mg/dL Urine Occult Blood (Negative) Urine Nitrate (Negative) Urine Bilirubin (Negative) Urine Urobilinogen (Less than 2) mg/dL Ur Leukocyte Esterase (Negative) Urine RBC (0-3) /hpf Urine WBC (0-5) /hpf Ur Squamous Epith Cells (0-5) /hpf Hyaline Casts (0-3) /lpf Granular Casts (None) /lpf Urine Mucus (Occasional) /lpf Micro UA Comment Ur Microscopic Review Urine Culture Comments 10/03/18 10/04/18 10/04/18 Range/Units Unknown 01:42 01:42 WBC 10.9 (4.0-11.0) th/mm3 RBC 5.11 (4.50-5.90) mil/mm3 Hgb 14.6 (13.0-17.0) gm/dL Hct 44.4 (39.0-51.0) % MCV 86.9 (80.0-100.0) fL MCH 28.5 (27.0-34.0) pg MCHC 32.8 (32.0-36.0) % RDW 13.7 (11.6-17.2) % Plt Count 213 (150-450) th/mm3 MPV 9.0 (7.0-11.0) fL Neut % (Auto) 79.5 H (16.0-70.0) % Lymph % (Auto) 14.9 (9.0-44.0) % Jasper % (Auto) 5.1 (0.0-8.0) % Eos % (Auto) 0.1 (0.0-4.0) % Baso % (Auto) 0.4 (0.0-2.0) % Neut # (Auto) 8.6 H (1.8-7.7) th/mm3 Lymph # (Auto) 1.6 (1.0-4.8) th/mm3 Jasper # (Auto) 0.6 (0.0-0.9) th/mm3 Eos # (Auto) 0.0 (0.0-0.4) th/mm3 Baso # (Auto) 0.0 (0.0-0.2) th/mm3 WBC Differential . Differential Comment Auto diff final Sodium 144 (136-145) meq/L Potassium 4.1 (3.5-5.1) meq/L Chloride 111 H (98-107) meq/L Carbon Dioxide 24.7 (21.0-32.0) meq/L Anion Gap 8 (5-15) meq/L BUN 29 H (7-18) mg/dL Creatinine 1.22 (0.60-1.30) mg/dL Estimated GFR 59 L (>89) mL/min Random Glucose 174 H (74-106) mg/dL Lactic Acid (0.4-2.0) mmol/L Calcium 8.5 (8.5-10.1) mg/dL Magnesium (1.5-2.5) mg/dL Total Bilirubin 0.6 (0.2-1.0) mg/dL AST 85 H (15-37) U/L ALT 50 (12-78) U/L Alkaline Phosphatase 74 (45-117) U/L Troponin I 0.33 H (0.02-0.05) ng/mL Total Protein 7.4 (6.4-8.2) g/dL Albumin 3.7 (3.4-5.0) g/dL Lipase (73-393) U/L Urine Color Yellow (Yellw/Straw) Urine Clarity Hazy H (Clear) Urine pH 5.0 (5.0-8.5) Ur Specific Thorp 1.028 (1.002-1.035) Urine Protein Negative (Neg-Trace) mg/dL Urine Glucose (UA) Negative (Negative) mg/dL Urine Ketones Trace H (Negative) mg/dL Urine Occult Blood Small H (Negative) Urine Nitrate Negative (Negative) Urine Bilirubin Negative (Negative) Urine Urobilinogen Less than 2 (Less than 2) mg/dL Ur Leukocyte Esterase Negative (Negative) Urine RBC Less than 1 (0-3) /hpf Urine WBC 4 (0-5) /hpf Ur Squamous Epith Cells 1 (0-5) /hpf Hyaline Casts 4 (0-3) /lpf Granular Casts 3 (None) /lpf Urine Mucus Few H (Occasional) /lpf Micro UA Comment Culture not ind Ur Microscopic Review Not Reportable Urine Culture Comments Culture not ind Imaging Data Radiologist's impression: Abdomen/Pelvis CT 10/03/18 19:20 CONCLUSION: 1. No acute findings in the abdomen and pelvis. 2. Prominent degenerative is of lumbar spine. Discharge Plan Discharge Disposition Patient Disposition: ED Admit(ED Internal Use Only) Discharge Order Discharge Orders: ED Use Only Admit Order (Routine); Ordered 10/03/18 Ordered By: [place] Soto Physicians Team ED Provider: Gerson Ayala ED Midlevel Provider: [place] Soto Primary Care Provider: Primary Care Yenny Colón Attending Provider: Tawana Mckeon Other Providers: [facility],Insurance Status ED Status: Left Department Discharge Information Discharge Date/Time: 10/04/18 01:21
[2018-10-03 19:43] LABS: Baso % (Auto) 0.1 % (0.0-2.0); Hematocrit 43.6 % (39.0-51.0); Hemoglobin 14.9 gm/dL (13.0-17.0); Lymph # (Auto) 2.5 th/mm3 (1.0-4.8); Lymph % (Auto) 20.5 % (9.0-44.0); Mean Corpuscular HGB Conc 34.3 % (32.0-36.0); Mean Corpuscular Volume 84.5 fL (80.0-100.0); Mean Platelet Volume 9.4 fL (7.0-11.0); Mono # (Auto) 0.8 th/mm3 (0.0-0.9); Mono % (Auto) 6.5 % (0.0-8.0); Neut % (Auto) 72.9 % (16.0-70.0); Platelet Count 226 th/mm3 (150-450); Red Blood Count 5.16 mil/mm3 (4.50-5.90); Red Cell Distribution Width 13.8 % (11.6-17.2); White Blood Count 12.3 th/mm3 (4.0-11.0)
[2018-10-03] MEDS ORDERED: Labetalol HCl Inj 100 MG/20 ML Vial IV.PUSH ONE ×2 (20:23→21:29)
[2018-10-03 20:38] LABS: Alanine Aminotransferase 49 U/L (12-78); Alkaline Phosphatase 79 U/L (45-117); Anion Gap 9 meq/L (5-15); Aspartate Aminotransferase 91 U/L (15-37); Blood Urea Nitrogen 38 mg/dL (7-18); Calcium 9.1 mg/dL (8.5-10.1); Carbon Dioxide 23.1 meq/L (21.0-32.0); Chloride 110 meq/L (98-107); Glomerular Filtration Rate 52 mL/min (>89); Glucose,Random 181 mg/dL (74-106); Lipase 102 U/L (73-393); Magnesium 2.9 mg/dL (1.5-2.5); Potassium 3.8 meq/L (3.5-5.1); Sodium 142 meq/L (136-145); Total Protein 7.9 g/dL (6.4-8.2)
--- NOTE | 2018-10-03 22:29 | CT ---
EXAM DATE: 10/03/2018 10:21 PM EST AGE/SEX: 68 years / Male INDICATIONS: Abdomen pain. CLINICAL DATA: This is the patient's initial encounter. Patient reports that signs and symptoms have been present for 1 day and indicates a pain score of 8/10. MEDICAL/SURGICAL HISTORY: Gastroesophageal reflux disease. None. ORAL CONTRAST: No oral contrast ingested. RADIATION DOSE: 19.00 CTDI (mGy) COMPARISON: [facility] [place] ABDOMEN & PELVIS W/O CONTRAST, 10/03/2018. . TECHNIQUE: Multiple contiguous axial images were obtained through the abdomen and pelvis following b olus infusion of 95 ml Omnipaque 350 (iohexol) nonionic water-soluble contrast as a single exam dos e. No oral contrast ingested. Using automated exposure control and adjustment of the mA and/or kV ac cording to patient size, radiation dose was kept as low as reasonably achievable to obtain optimal di agnostic quality images. DICOM format image data is available electronically for review and comparis on. FINDINGS: Lower Lungs: Mild atelectasis at lung bases. Liver: The liver has a homogeneous density without space-occupying lesion. There is no dilation of th e biliary tree. Spleen: Homogeneous density without enlargement. Pancreas: Unremarkable without mass or calcification. Kidneys: Normal in size and shape. No evidence of mass or hydronephrosis. Adrenal Glands: Unremarkable. Aorta: Atherosclerotic disease. Diameter within normal limits. Bowel/Mesentery: No evidence of bowel dilatation. No free air or free fluid. Appendix within normal limits. Abdominal Wall: Intact. Retroperitoneum: No evidence of adenopathy in the retrocrural, para-aortic, or deep pelvic regions. Bladder: Contours are smooth. Reproductive Organs: No abnormal masses or calcifications seen. Inguinal: The inguinal region is unremarkable without evidence of adenopathy. Bony Structures: Degenerative findings of lumbar spine with prominent facet arthrosis lower lumbar s pine. There is a gas-containing left-sided paracentral disc protrusion at L3-4. CONCLUSION: 1. No acute findings in the abdomen and pelvis. 2. Prominent degenerative is of lumbar spine. Electronically signed by: Michael Sherman MD Board Certified Radiologist 10/03/2018 10:28 PM EST
[2018-10-03] MEDS ORDERED: Bisacodyl 10 MG Supp RECTAL PRN (22:50)
[2018-10-03] MEDS ORDERED: Metoprolol Inj 5 MG/5 ML Vial IV.PUSH ONE (22:50)
[2018-10-03] MEDS ORDERED: Acetaminophen 325 MG Tablet PO PRN (22:50)
[2018-10-03] MEDS: Sod Chloride 0.9% Inj 1,000 ML IV.CONT SCH (23:17)
[2018-10-03] MEDS: Pantoprazole Inj 40 MG Vial IV.PUSH SCH (23:18)
[2018-10-03 23:30] LABS: Bilirubin,Urine Negative (Negative); Clarity,Urine Hazy (Clear); Color,Urine Yellow (Yellw/Straw); Glucose,Urine (UA) Negative (Negative); Hyaline Casts,Urine 4 /lpf (0-3); Leukocyte Esterase,Urine Negative (Negative); Mucus,Urine Few /lpf (Occasional); Nitrite,Urine Negative (Negative); Specific Gravity,Urine 1.028 (1.002-1.035); Squamous Epithelial Cell,Urine 1 /hpf (0-5)
--- NOTE | 2018-10-03 23:47 | P.HPIM ---
History of Present Illness Primary Care Physician: No Primary Care Physician History of Present Illness: This is a 68-year-old male with a PMH of Depression , Hyperlipidemia and GERD who presented to the ER w/ complaints of abdominal pain and "dehydration". Was seen in ER earlier this morning for similar complaints, found to have possible ileus on CT Abd/Pelvis in addition to WENDI w/ creatinine 2.58 and elevated trop of 0.31. Pt was offered admission at that time, however he LEFT AMA as he was feeling better. States he went home, drank a Gatorade and took a nap, but woke up w/ ongoing abdominal pain. Pain is generalized, cramping, 7-8/10, non-radiating, no associated nausea/vomiting or diarrhea. Denies c/o chest pain. Reports previous h/o Alcohol abuse but "quit a long time ago", states he "drank more than I should've" from to , stopped drinking on 09/30/18. Denies withdrawal symptoms, but reports decreased PO intake during that time. On arrival, BP 236/123, HR 94, O2 sat 97 % on RA, Afebrile. WBC 12.3, previously 17.3 on last visit this morning. Creatinine improved to 1.37. Troponin trended down to 0.20. Repeat CT Abdomen/ Pelvis with no acute findings. S/p Labetalol IV x2 doses in ER, remains hypertensives. States BP checked regularly by PCP, usually 140's systolic, not on home antihypertensives. Diagnosis (1) Abdominal pain: (2) WENDI (acute kidney injury): (3) Elevated troponin: (4) HTN (hypertension): Inpatient Certification Inpatient Certification: I certify that the inpatient services were ordered in accordance with Medicare regulations governing the order. This includes certification that hospital inpatient services are reasonable and necessary and in the case of services not specified as inpatient-only under 42 CFR 419.22(n), that they are appropriately provided as inpatient services in accordance to with the 2-midnight benchmark under 43 CFR 412.3(e) Estimated Total Length of Stay (Days): 2 Plans for Post Hospital Care: Not yet determined Review of Systems PAST FAMILY HISTORY: Reviewed. No h/o DM or CAD Review of Systems: all other systems reviewed are negative [facility] Medical History Medical History Depression (Acute) GERD (gastroesophageal reflux disease) (Acute) High cholesterol (Acute) Hx of gastric ulcer (Acute) Surgical History Surgical History No history of previous surgery (Acute) Social History Social History Substance History: No History of Abuse Second Hand Smoke Exposure: No Smoking Status: Never smoker How Often Do You Have a Drink Containing Alcohol: Monthly or less Recent Travel in [facility] within the Last 8 Weeks: No Recent Out of Country Travel within the Last 8 Weeks: No Immunization History Tetanus Immunization: Unsure Medications and Allergies Allergies Allergy/AdvReac Type Severity Reaction Status Date / Time No Known Allergies Allergy Verified 10/03/18 05:05 Home Medications Medication Instructions Recorded Confirmed Type atorvastatin 20 mg PO DAILY 10/03/18 10/03/18 History hydrocodone-acetaminophen 1 tab PO Q6H 10/03/18 10/03/18 History pantoprazole 40 mg PO DAILY 10/03/18 10/03/18 History sertraline 200 mg PO DAILY 10/03/18 10/03/18 History Active Medications: Active Medications Acetaminophen (Tylenol) 650 mg PO Q4H PRN PRN Reason: Temp > 100.4 Al Hydroxide/Mg Hydroxide (Milk Of Magnesia Liq) 30 ml PO Q12H PRN PRN Reason: Mild Constipation Bisacodyl (Dulcolax Supp) 10 mg RECTAL DAILY PRN PRN Reason: SEVERE CONSITIPATION Hydromorphone HCl (Dilaudid Pf Inj) 1 mg IV.PUSH Q4H PRN PRN Reason: PAIN SCALE 6 TO 10 Sodium Chloride (Ns Inj) 1,000 mls @ 100 mls/hr IV.CONT .Q10H [facility] Last Admin: 10/03/18 23:17 Dose: 100 mls/hr Lactulose (Lactulose Liq) 30 ml PO DAILY PRN PRN Reason: SEVERE CONSITIPATION Ondansetron HCl (Zofran Inj) 4 mg IV.PUSH Q6H PRN PRN Reason: NAUSEA OR VOMITING Pantoprazole Sodium (Protonix Inj) 40 mg IV.PUSH Q12H [facility] Last Admin: 10/03/18 23:18 Dose: 40 mg Senna/Docusate Sodium (Elvia-Colace) 1 tab PO BID PEPE Sennosides (Senokot) 17.2 mg PO Q12H PRN PRN Reason: Moderate Constipation Sodium Chloride (Ns Flush) 2 ml IV.FLUSH PRN PRN PRN Reason: FLUSH AFTER USING IV ACCESS Sodium Chloride (Ns Flush) 2 ml IV.FLUSH BID PEPE Sodium Chloride (Ns Flush) 2 ml IV.FLUSH PRN PRN PRN Reason: FLUSH AFTER USING IV ACCESS Physical Exam Vital signs: Last Vital Signs Temp 98.6 F 10/03/18 18:07 Pulse 72 10/03/18 22:48 Resp 18 10/03/18 22:48 BP 207/111 H 10/03/18 22:48 Pulse Ox 97 10/03/18 22:48 Intake & Output 10/01/18 10/02/18 10/03/18 10/04/18 06:59 06:59 06:59 06:59 Intake Total 500 / 500 Balance 500 / 500 Weight 97.522 kg Narrative: PE: GENERAL: Middle-aged white male in no acute distress. SKIN: Focused skin assessment warm and dry. HEENT: PERRLA, EOMI. No scleral icterus or conjunctival pallor. No lid lag or facial droop. CARDIOVASCULAR: Regular rate and rhythm. No obvious murmurs to auscultation. No chest tenderness to palpation. RESPIRATORY: No obvious rhonchi or wheezing. Clear to auscultation. Breath sounds equal bilaterally. GASTROINTESTINAL: Abdomen soft, non-tender, nondistended. BS normal. MUSCULOSKELETAL: Extremities without clubbing, cyanosis, or edema. No obvious deformities. NEUROLOGICAL: Awake, alert and oriented x4. No focal neurologic deficits. Moving both upper and lower extremities spontaneously. PSYCHIATRIC: Flat affect. Insight and judgment normal. Results Labs CBC & Chem 7: 10/03/18 19:35 10/03/18 19:35 Imaging Impressions Abdomen/Pelvis CT 10/03/18 19:20 CONCLUSION: 1. No acute findings in the abdomen and pelvis. 2. Prominent degenerative is of lumbar spine. Caprini VTE Risk Assessment Caprini VTE Risk Assessment: No/Low Risk (score <= 1) Caprini Risk Assessment Model: Point Value = 1 Point Value = 2 Point Value = 3 Point Value = 5 Age 41-60 Minor surgery BMI > 25 kg/m2 Swollen legs Varicose veins or History of unexplained or recurrent spontaneous Oral contraceptives or hormone replacement Sepsis (< 1 month) Serious lung disease, including pneumonia (< 1 month) Abnormal pulmonary function Acute myocardial infarction Congestive heart failure (< 1 month) History of inflammatory bowel disease Medical patient at bed rest Age 61-74 Arthroscopic surgery Major open surgery (> 45 min) Laparoscopic surgery (> 45 min) Malignancy Confined to bed (> 72 hours) Immobilizing plaster cast Central venous access Age >= 75 History of VTE Family history of VTE Factor V Leiden Prothrombin [id number] Lupus anticoagulant Anticardiolipin antibodies Elevated serum homocysteine Heparin-induced thrombocytopenia Other congenital or acquired thrombophilia Stroke (< 1 month) Elective arthroplasty Hip, pelvis, or leg fracture Acute spinal cord injury (< 1 month) Prophylaxis Regimen: Total Risk Factor Score Risk Level Prophylaxis Regimen 0-1 Low Early ambulation 2 Moderate Order ONE of the following: *Sequential Compression Device (SCD) *Heparin 5000 units SQ BID 3-4 Higher Order ONE of the following medications: *Heparin 5000 units SQ TID *Enoxaparin/Lovenox 40 mg SQ daily (WT < 150 kg, CrCl > 30 mL/min) *Enoxaparin/Lovenox 30 mg SQ daily (WT < 150 kg, CrCl > 10-29 mL/min) *Enoxaparin/Lovenox 30 mg SQ BID (WT < 150 kg, CrCl > 30 mL/min) AND/OR *Sequential Compression Device (SCD) 5 or more Highest Order ONE of the following medications: *Heparin 5000 units SQ TID (Preferred with Epidurals) *Enoxaparin/Lovenox 40 mg SQ daily (WT < 150 kg, CrCl > 30 mL/min) *Enoxaparin/Lovenox 30 mg SQ daily (WT < 150 kg, CrCl > 10-29 mL/min) *Enoxaparin/Lovenox 30 mg SQ BID (WT < 150 kg, CrCl > 30 mL/min) AND *Sequential Compression Device (SCD) Assessment and Plan (1) Abdominal pain: Code(s): R10.9 - Unspecified abdominal pain Status: Acute (2) WENDI (acute kidney injury): Code(s): N17.9 - Acute kidney failure, unspecified Status: Acute (3) Elevated troponin: Code(s): R74.8 - Abnormal levels of other serum enzymes Status: Acute (4) HTN (hypertension): Code(s): I10 - Essential (primary) hypertension Status: Acute Plan A/P: 1. Abdominal Pain: Intractable, seen in ER earlier on 10/03/18 for same, CT Abd/ Pelvis at that time w/ possible ileus, repeat CT Abd/Pelvis now w/ no acute findings. Continue analgesics/antiemetics as needed. Diet as tolerated. 2. WENDI: Creatinine 2.58 earlier today, now improved to 1.37, previously 1.16 on 05/06/15, U/a negative for UTI, IVF for hydration, repeat labs in am. Likely due to dehydration from period of excessive alcohol ingestion. 3. Elevated Trop: trending down, previously 0.31 earlier today, now 0.20, likely related to WENDI and Hypertensive Urgency, no c/o chest pain. Will place on telemetry, check serial enzymes for trend, consult Cardiology as needed. 4. HTN: Uncontrolled, BP 230's, reports no h/o HTN, BP usually 140's at PCP office, not on meds, s/p Labetalol IV x2 in ER, BP currently 207/111, HR 72, will give additional IV meds, monitor BP, antihypertensives as needed for BP > 180 5. DVT Prophylaxis: SCD/Teds 6. Social work for d/c planning as needed. 7. Case discussed w/ ER physician at length, labs/records/imaging reviewed by me.
[2018-10-04] MEDS: HYDROmorphone PF Inj 2 MG/ML Vial IV.PUSH PRN ×2 (01:19→08:15)
[2018-10-04] MEDS ORDERED: LORazepam 1 MG Tablet PO PRN (01:26)
[2018-10-04] MEDS ORDERED: Haloperidol Inj 5 MG/ML Ampul IV.PUSH PRN (01:26)
[2018-10-04] MEDS ORDERED: hydrALAZINE HCl Inj 20 MG/ML Vial IV.PUSH ONE (01:27)
[2018-10-04 01:57] LABS: Baso % (Auto) 0.4 % (0.0-2.0); Eos % (Auto) 0.1 % (0.0-4.0); Hematocrit 44.4 % (39.0-51.0); Hemoglobin 14.6 gm/dL (13.0-17.0); Lymph # (Auto) 1.6 th/mm3 (1.0-4.8); Lymph % (Auto) 14.9 % (9.0-44.0); Mean Corpuscular HGB Conc 32.8 % (32.0-36.0); Mean Corpuscular Hemoglobin 28.5 pg (27.0-34.0); Mean Corpuscular Volume 86.9 fL (80.0-100.0); Mono # (Auto) 0.6 th/mm3 (0.0-0.9); Mono % (Auto) 5.1 % (0.0-8.0); Neut # (Auto) 8.6 th/mm3 (1.8-7.7); Neut % (Auto) 79.5 % (16.0-70.0); Platelet Count 213 th/mm3 (150-450); Red Blood Count 5.11 mil/mm3 (4.50-5.90); Red Cell Distribution Width 13.7 % (11.6-17.2); White Blood Count 10.9 th/mm3 (4.0-11.0)
[2018-10-04 02:05] LABS: Alanine Aminotransferase 50 U/L (12-78); Albumin 3.7 g/dL (3.4-5.0); Anion Gap 8 meq/L (5-15); Aspartate Aminotransferase 85 U/L (15-37); Blood Urea Nitrogen 29 mg/dL (7-18); Calcium 8.5 mg/dL (8.5-10.1); Carbon Dioxide 24.7 meq/L (21.0-32.0); Chloride 111 meq/L (98-107); Glomerular Filtration Rate 59 mL/min (>89); Glucose,Random 174 mg/dL (74-106); Potassium 4.1 meq/L (3.5-5.1); Sodium 144 meq/L (136-145)
[2018-10-04 02:09] LABS: Alkaline Phosphatase 74 U/L (45-117); Total Protein 7.4 g/dL (6.4-8.2); Troponin I 0.33 ng/mL (0.02-0.05)
--- NOTE | 2018-10-04 09:34 | P.PNIM ---
Subjective Interval history: Follow-up for abdominal pain, hypertensive urgency, acute kidney injury. Patient is complaining of abdominal pain. No chest pain, shortness of breath, fever or chills. During this discussion he also mentioned that he takes Protonix for acid reflux. No significant weight loss in the recent weeks. However, he reports dysphasia/odynophagia as well as a feeling of food getting stuck in the lower esophageal area. Never had EGD. Physical Exam Vital signs: Last Vital Signs Temp 98.7 F 10/04/18 04:00 Pulse 57 L 10/04/18 07:00 Resp 14 10/04/18 04:00 BP 150/80 H 10/04/18 04:00 Pulse Ox 97 10/04/18 04:00 Intake & Output 10/02/18 10/03/18 10/04/18 10/05/18 06:59 06:59 06:59 06:59 Intake Total 500 / 500 Balance 500 / 500 Weight 100.2 kg Narrative: GENERAL: Alert, NAD. SKIN: Warm and dry. HEAD: Normocephalic. EYES: No scleral icterus. No injection or drainage. NECK: Supple, trachea midline. No JVD or lymphadenopathy. CARDIOVASCULAR: Regular rate and rhythm without murmurs, gallops, or rubs. RESPIRATORY: Breath sounds equal bilaterally. No accessory muscle use. GASTROINTESTINAL: Abdomen soft, non-tender at the time of this exam, nondistended. MUSCULOSKELETAL: No cyanosis, or edema. BACK: Nontender without obvious deformity. No CVA tenderness. Results Labs CBC & Chem 7: 10/04/18 01:42 10/04/18 01:42 Imaging Imaging: Impressions Abdomen/Pelvis CT 10/03/18 19:20 CONCLUSION: 1. No acute findings in the abdomen and pelvis. 2. Prominent degenerative is of lumbar spine. Assessment and Plan (1) Abdominal pain: Code(s): R10.9 - Unspecified abdominal pain Status: Acute (2) WENDI (acute kidney injury): Code(s): N17.9 - Acute kidney failure, unspecified Status: Acute (3) Elevated troponin: Code(s): R74.8 - Abnormal levels of other serum enzymes Status: Acute (4) HTN (hypertension): Code(s): I10 - Essential (primary) hypertension Status: Acute Plan Mr. Coffey is a pleasant 68-year-old male with a history of depression , hyperlipidemia, GERD who presented to the emergency department due to abdominal pain on 10/03/2018. In the morning of 10/03/2018, patient came to the emergency department for similar symptoms and he was offered admission. He left AMA. Patient underwent a CT abdomen pelvis in the morning of 10/03/2018 which showed a possible ileus. However, a second abdomen pelvis CT scan done on the same day in the evening did not show any remarkable findings. Patient was found to have significant elevation in blood pressure as well as mild elevation in troponins. On arrival, BP 236/123, HR 94, O2 sat 97% on RA, Afebrile. WBC 12.3, previously 17.3 on last visit this morning. Creatinine improved to 2.58 ==> 1.37. Troponin trended down to 0.20. Acute abdominal pain GERD Dysphagia and odynophagia Possible esophageal stricture Patient's abdominal pain is somewhat nonspecific and intermittent. Lipase level within normal range. We will consult gastroenterology for an evaluation and possible EGD. Continue Protonix IV push 40 mg twice daily. Continue normal saline at 100 cc/h. Acute kidney injury Creatinine was 2.5 8 in the morning of 10/03/2018. Likely due to hypovolemia. Currently creatinine is 1.22. Avoid nephrotoxins. Hypertensive urgency Possibly related to pain. However at the time of this interview, his pain was well controlled but his blood pressure was over 210 systolic. For now we will use clonidine 0.1 mg every 6 hours as needed for blood pressure above 175 systolic. If needed, will consider nifedipine XL for long-term blood pressure control. Alcohol abuse Continue [facility] protocol Clonidine for hypertensive urgency. Full code. SCDs for now. If prolonged hospitalization is expected, will consider pharmacological DVT prophylaxis.
[2018-10-04] MEDS: Pantoprazole Inj 40 MG Vial IV.PUSH SCH (10:00)
[2018-10-04] MEDS: Senna/Docusate Sodium 8.6/50 MG Tablet PO SCH ×2 (10:00→20:31)
--- NOTE | 2018-10-04 11:40 | P.CONGI ---
History of Present Illness Consult date: 10/04/18 Consult reason: Abd pain Chief complaint: Hypertension, abdominal pain History of Present Illness: This is a 68-year-old male with a PMH of Depression, Hyperlipidemia and GERD ( on Protonix at home) who presented to the ER with complaints of diffused abdominal pain, and dehydration. Patient was seen in ED yesterday for same complaints, and found to have possible ileus on CT Abd/Pelvis in addition to WENDI w/ creatinine 2.58 and elevated trop of 0.31, but pt LEFT AMA as he was feeling better. The pain started around Fri. Diffused, very strong, no radiation. Associated nausea but no vomiting. States hasn't been eating much. Took MOM to get relief when pain first started and had goo BM the following day but non since. Yesterday he was passing gas. States had similar episodes in the past about 3X in the past 3 yrs. He attributes sx to Marijuana use. He admits to chronic use of Advil maybe once a week for back pain. He denies alcohol intake but admits to drinking on through , with out water intake. Repeat CT Abdomen/Pelvis with no acute findings. WBC 12.3, previously 17.3 on last visit this morning. Creatinine improved to 1.37. Troponin trended down to 0.20. States he had cologuard a yr which was negative. Denies melena or hematochezia <Lida Simmons - Last Filed: 10/04/18 11:40> Review of Systems All other systems reviewed negative except as stated in HPI <Lida Simmons - Last Filed: 10/04/18 11:40> PMFSH - History History Provided By: Patient - Medical History Medical History: Medical History (Last Reviewed 10/03/18 @ 19:23 by ISIS Kurtz) Depression GERD (gastroesophageal reflux disease) High cholesterol Hx of gastric ulcer - Surgical History Surgical History: Surgical History (Last Reviewed 10/03/18 @ 19:23 by ISIS Kurtz) No history of previous surgery - Tobacco History Second Hand Smoke Exposure: No Tobacco Use In Past 30 Days: No Smoking Status: Never smoker - Alcohol History How Often Do You Have a Drink Containing Alcohol: Monthly or less - Substance Use History Substance History: No History of Abuse - Travel History Recent Travel in the [facility] Within the Last 8 Weeks: No Recent Travel Out of the Country Within the Last 8 Weeks: No - Immunization History Tetanus Immunization: Unsure <IrisRichardjuan daniel - Last Filed: 10/04/18 11:40> - Medical History Medical History: Medical History (Last Reviewed 10/03/18 @ 19:23 by ISIS Kurtz) Depression GERD (gastroesophageal reflux disease) High cholesterol Hx of gastric ulcer - Surgical History Surgical History: Surgical History (Last Reviewed 10/03/18 @ 19:23 by ISIS Kurtz) No history of previous surgery <Crystal Plasencia - Last Filed: 10/04/18 13:32> Medications and Allergies Active Medications: Active Medications Acetaminophen (Tylenol) 650 mg PO Q4H PRN PRN Reason: Temp > 100.4 Al Hydroxide/Mg Hydroxide (Milk Of Magnesia Liq) 30 ml PO Q12H PRN PRN Reason: Mild Constipation Bisacodyl (Dulcolax Supp) 10 mg RECTAL DAILY PRN PRN Reason: SEVERE CONSITIPATION Clonidine HCl (Catapres) 0.1 mg PO Q6H PRN PRN Reason: BP > 175 systolic Last Admin: 10/04/18 09:59 Dose: 0.1 mg Flumazenil (Romazicon Inj) 0.2 mg IV.PUSH Q1M PRN PRN Reason: OVERSEDATION Haloperidol Lactate (Haldol Inj) 1 mg IV.PUSH Q15M PRN PRN Reason: for severe agitation Hydromorphone HCl (Dilaudid Pf Inj) 1 mg IV.PUSH Q4H PRN PRN Reason: PAIN SCALE 6 TO 10 Last Admin: 10/04/18 08:15 Dose: 1 mg Sodium Chloride (Ns Inj) 1,000 mls @ 100 mls/hr IV.CONT .Q10H PEPE Last Infusion: 10/04/18 10:00 Dose: 100 mls/hr Lactulose (Lactulose Liq) 30 ml PO DAILY PRN PRN Reason: SEVERE CONSITIPATION Lorazepam (Ativan) 1 mg PO Q4H PRN PRN Reason: for CIWA 8-10 Lorazepam (Ativan) 2 mg PO Q2H PRN PRN Reason: for CIWA 11-14 Lorazepam (Ativan Inj) 2 mg IV.PUSH Q2H PRN PRN Reason: for CIWA 11-14 Lorazepam (Ativan Inj) 2 mg IV.PUSH Q1H PRN PRN Reason: for CIWA 15-20 Lorazepam (Ativan Inj) 1 mg IV.PUSH Q4H PRN PRN Reason: for CIWA 8-10 Lorazepam (Ativan Inj) 2 mg IV.PUSH Q15M PRN PRN Reason: for CIWA > 20 Ondansetron HCl (Zofran Inj) 4 mg IV.PUSH Q6H PRN PRN Reason: NAUSEA OR VOMITING Last Admin: 10/04/18 08:16 Dose: 4 mg Pantoprazole Sodium (Protonix Inj) 40 mg IV.PUSH Q12H PEPE Last Admin: 10/04/18 10:00 Dose: 40 mg Senna/Docusate Sodium (Elvia-Colace) 1 tab PO BID [facility] Last Admin: 10/04/18 10:00 Dose: Not Given Sennosides (Senokot) 17.2 mg PO Q12H PRN PRN Reason: Moderate Constipation Sodium Chloride (Ns Flush) 2 ml IV.FLUSH BID PEPE Sodium Chloride (Ns Flush) 2 ml IV.FLUSH PRN PRN PRN Reason: FLUSH AFTER USING IV ACCESS <Lida Simmons - Last Filed: 10/04/18 11:40> Active Medications: Active Medications Acetaminophen (Tylenol) 650 mg PO Q4H PRN PRN Reason: Temp > 100.4 Al Hydroxide/Mg Hydroxide (Milk Of Magnesia Liq) 30 ml PO Q12H PRN PRN Reason: Mild Constipation Bisacodyl (Dulcolax Supp) 10 mg RECTAL DAILY PRN PRN Reason: SEVERE CONSITIPATION Clonidine HCl (Catapres) 0.1 mg PO Q6H PRN PRN Reason: BP > 175 systolic Last Admin: 10/04/18 09:59 Dose: 0.1 mg Flumazenil (Romazicon Inj) 0.2 mg IV.PUSH Q1M PRN PRN Reason: OVERSEDATION Haloperidol Lactate (Haldol Inj) 1 mg IV.PUSH Q15M PRN PRN Reason: for severe agitation Hydromorphone HCl (Dilaudid Pf Inj) 1 mg IV.PUSH Q4H PRN PRN Reason: PAIN SCALE 6 TO 10 Last Admin: 10/04/18 08:15 Dose: 1 mg Sodium Chloride (Ns Inj) 1,000 mls @ 100 mls/hr IV.CONT .Q10H [facility] Last Infusion: 10/04/18 10:00 Dose: 100 mls/hr Lactulose (Lactulose Liq) 30 ml PO DAILY PRN PRN Reason: SEVERE CONSITIPATION Lorazepam (Ativan) 1 mg PO Q4H PRN PRN Reason: for CIWA 8-10 Last Admin: 10/04/18 11:23 Dose: 1 mg Lorazepam (Ativan) 2 mg PO Q2H PRN PRN Reason: for CIWA 11-14 Lorazepam (Ativan Inj) 2 mg IV.PUSH Q2H PRN PRN Reason: for CIWA 11-14 Lorazepam (Ativan Inj) 2 mg IV.PUSH Q1H PRN PRN Reason: for CIWA 15-20 Lorazepam (Ativan Inj) 1 mg IV.PUSH Q4H PRN PRN Reason: for CIWA 8-10 Lorazepam (Ativan Inj) 2 mg IV.PUSH Q15M PRN PRN Reason: for CIWA > 20 Ondansetron HCl (Zofran Inj) 4 mg IV.PUSH Q6H PRN PRN Reason: NAUSEA OR VOMITING Last Admin: 10/04/18 08:16 Dose: 4 mg Pantoprazole Sodium (Protonix Inj) 40 mg IV.PUSH Q12H [facility] Last Admin: 10/04/18 10:00 Dose: 40 mg Senna/Docusate Sodium (Elvia-Colace) 1 tab PO BID [facility] Last Admin: 10/04/18 10:00 Dose: Not Given Sennosides (Senokot) 17.2 mg PO Q12H PRN PRN Reason: Moderate Constipation Sodium Chloride (Ns Flush) 2 ml IV.FLUSH BID [facility] Sodium Chloride (Ns Flush) 2 ml IV.FLUSH PRN PRN PRN Reason: FLUSH AFTER USING IV ACCESS <Crystal Plasencia - Last Filed: 10/04/18 13:32> Allergies Allergy/AdvReac Type Severity Reaction Status Date / Time No Known Allergies Allergy Verified 10/03/18 05:05 Home Medications Medication Instructions Recorded Confirmed Type atorvastatin 20 mg PO DAILY 10/03/18 10/03/18 History hydrocodone-acetaminophen 1 tab PO Q6H 10/03/18 10/03/18 History pantoprazole 40 mg PO DAILY 10/03/18 10/03/18 History sertraline 200 mg PO DAILY 10/03/18 10/03/18 History Exam Vital signs: Vital Signs 10/03/18 18:07 10/03/18 18:32 10/03/18 18:35 Temperature 98.6 F Pulse Rate 94 H 87 Respiratory Rate 18 20 Blood Pressure 236/123 H 226/111 H Pulse Oximetry 97 97 98 10/03/18 19:52 10/03/18 21:09 10/03/18 21:19 Temperature Pulse Rate 79 71 Respiratory Rate 18 18 18 Blood Pressure 218/108 H 207/103 H Pulse Oximetry 96 99 10/03/18 21:45 10/03/18 22:48 10/04/18 00:07 Temperature Pulse Rate 70 72 70 Respiratory Rate 18 18 16 Blood Pressure 186/91 H 207/111 H 194/95 H Pulse Oximetry 97 97 97 10/04/18 02:14 10/04/18 02:16 10/04/18 02:17 Temperature 99.4 F Pulse Rate 67 73 70 Respiratory Rate 16 Blood Pressure 208/111 H 142/88 H Pulse Oximetry 95 10/04/18 02:43 10/04/18 03:17 10/04/18 04:00 Temperature 98.7 F Pulse Rate 72 69 66 Respiratory Rate 14 Blood Pressure 150/80 H Pulse Oximetry 97 10/04/18 04:17 10/04/18 05:00 10/04/18 06:00 Temperature Pulse Rate 61 60 71 Respiratory Rate Blood Pressure Pulse Oximetry 10/04/18 07:00 10/04/18 08:00 10/04/18 08:15 Temperature 98.1 F Pulse Rate 57 L 80 Respiratory Rate 22 Blood Pressure 196/110 H 212/113 H Pulse Oximetry 98 10/04/18 09:00 Temperature Pulse Rate Respiratory Rate Blood Pressure 218/117 H Pulse Oximetry Intake & Output 10/03/18 10/04/18 10/04/18 18:59 06:59 18:59 Intake Total 500 / 500 Balance 500 / 500 Weight 97.522 kg 100.2 kg Intake: IV 500 / 500 NS Inj 500 ML @ Wide Open IV. 500 / 500 SIG BOLUS ONE Rx#:[id number] - Constitutional no acute distress - Routine HEENT Exam Head: Present: normocephalic - Routine Respiratory Exam Present: CTA bilaterally - Routine Cardiovascular Exam Present: RRR - Routine Abdominal Exam Present: soft, normoactive bowel sounds, tenderness. Absent: distended, rebound - Routine Extremities Exam Absent: cyanosis, edema - Routine Skin Exam Present: intact, dry - Routine Neurological Exam Present: alert, oriented X3 <Lida Simmons - Last Filed: 10/04/18 11:40> Vital signs: Vital Signs 10/03/18 18:07 10/03/18 18:32 10/03/18 18:35 Temperature 98.6 F Pulse Rate 94 H 87 Respiratory Rate 18 20 Blood Pressure 236/123 H 226/111 H Pulse Oximetry 97 97 98 10/03/18 19:52 10/03/18 21:09 10/03/18 21:19 Temperature Pulse Rate 79 71 Respiratory Rate 18 18 18 Blood Pressure 218/108 H 207/103 H Pulse Oximetry 96 99 10/03/18 21:45 10/03/18 22:48 10/04/18 00:07 Temperature Pulse Rate 70 72 70 Respiratory Rate 18 18 16 Blood Pressure 186/91 H 207/111 H 194/95 H Pulse Oximetry 97 97 97 10/04/18 02:14 10/04/18 02:16 10/04/18 02:17 Temperature 99.4 F Pulse Rate 67 73 70 Respiratory Rate 16 Blood Pressure 208/111 H 142/88 H Pulse Oximetry 95 10/04/18 02:43 10/04/18 03:17 10/04/18 04:00 Temperature 98.7 F Pulse Rate 72 69 66 Respiratory Rate 14 Blood Pressure 150/80 H Pulse Oximetry 97 10/04/18 04:17 10/04/18 05:00 10/04/18 06:00 Temperature Pulse Rate 61 60 71 Respiratory Rate Blood Pressure Pulse Oximetry 10/04/18 07:00 10/04/18 08:00 10/04/18 08:15 Temperature 98.1 F Pulse Rate 57 L 68 Respiratory Rate 22 Blood Pressure 196/110 H 212/113 H Pulse Oximetry 98 10/04/18 09:00 10/04/18 10:00 10/04/18 11:00 Temperature Pulse Rate 72 66 67 Respiratory Rate Blood Pressure 218/117 H Pulse Oximetry 10/04/18 12:00 Temperature 97.9 F Pulse Rate 74 Respiratory Rate 18 Blood Pressure 206/113 H Pulse Oximetry 97 Intake & Output 10/03/18 10/04/18 10/04/18 18:59 06:59 18:59 Intake Total 500 / 500 Balance 500 / 500 Weight 97.522 kg 100.2 kg Intake: IV 500 / 500 NS Inj 500 ML @ Wide Open IV. 500 / 500 SIG BOLUS ONE Rx#:[id number] <Crystal Plasencia - Last Filed: 10/04/18 13:32> Results - Labs CBC & Chem 7: 10/04/18 01:42 10/04/18 01:42 Labs: Laboratory Results - last 24 hr 10/03/18 10/03/18 10/03/18 19:35 19:35 19:35 WBC 12.3 H RBC 5.16 Hgb 14.9 D Hct 43.6 MCV 84.5 MCH 29.0 MCHC 34.3 RDW 13.8 Plt Count 226 MPV 9.4 Neut % (Auto) 72.9 H Lymph % (Auto) 20.5 Parker % (Auto) 6.5 Eos % (Auto) 0.0 Baso % (Auto) 0.1 Neut # (Auto) 9.0 H Lymph # (Auto) 2.5 Parker # (Auto) 0.8 Eos # (Auto) 0.0 Baso # (Auto) 0.0 WBC Differential . Differential Comment Auto diff final Sodium 142 Potassium 3.8 Chloride 110 H Carbon Dioxide 23.1 Anion Gap 9 BUN 38 H Creatinine 1.37 H Estimated GFR 52 L Random Glucose 181 H Lactic Acid 1.6 Calcium 9.1 D Magnesium 2.9 H D Total Bilirubin 0.8 AST 91 H ALT 49 Alkaline Phosphatase 79 Troponin I 0.20 H Total Protein 7.9 D Albumin 4.0 D Lipase 102 Urine Color Urine Clarity Urine pH Ur Specific Reading Urine Protein Urine Glucose (UA) Urine Ketones Urine Occult Blood Urine Nitrate Urine Bilirubin Urine Urobilinogen Ur Leukocyte Esterase Urine RBC Urine WBC Ur Squamous Epith Cells Hyaline Casts Granular Casts Urine Mucus Micro UA Comment Ur Microscopic Review Urine Culture Comments 10/03/18 10/04/18 10/04/18 Unknown 01:42 01:42 WBC 10.9 RBC 5.11 Hgb 14.6 Hct 44.4 MCV 86.9 MCH 28.5 MCHC 32.8 RDW 13.7 Plt Count 213 MPV 9.0 Neut % (Auto) 79.5 H Lymph % (Auto) 14.9 Parker % (Auto) 5.1 Eos % (Auto) 0.1 Baso % (Auto) 0.4 Neut # (Auto) 8.6 H Lymph # (Auto) 1.6 Parker # (Auto) 0.6 Eos # (Auto) 0.0 Baso # (Auto) 0.0 WBC Differential . Differential Comment Auto diff final Sodium 144 Potassium 4.1 Chloride 111 H Carbon Dioxide 24.7 Anion Gap 8 BUN 29 H Creatinine 1.22 Estimated GFR 59 L Random Glucose 174 H Lactic Acid Calcium 8.5 Magnesium Total Bilirubin 0.6 AST 85 H ALT 50 Alkaline Phosphatase 74 Troponin I 0.33 H Total Protein 7.4 Albumin 3.7 Lipase Urine Color Yellow Urine Clarity Hazy H Urine pH 5.0 Ur Specific Reading 1.028 Urine Protein Negative Urine Glucose (UA) Negative Urine Ketones Trace H Urine Occult Blood Small H Urine Nitrate Negative Urine Bilirubin Negative Urine Urobilinogen Less than 2 Ur Leukocyte Esterase Negative Urine RBC Less than 1 Urine WBC 4 Ur Squamous Epith Cells 1 Hyaline Casts 4 Granular Casts 3 Urine Mucus Few H Micro UA Comment Culture not ind Ur Microscopic Review Not Reportable Urine Culture Comments Culture not ind 10/04/18 07:35 WBC RBC Hgb Hct MCV MCH MCHC RDW Plt Count MPV Neut % (Auto) Lymph % (Auto) Parker % (Auto) Eos % (Auto) Baso % (Auto) Neut # (Auto) Lymph # (Auto) Parker # (Auto) Eos # (Auto) Baso # (Auto) WBC Differential Differential Comment Sodium Potassium Chloride Carbon Dioxide Anion Gap BUN Creatinine Estimated GFR Random Glucose Lactic Acid Calcium Magnesium Total Bilirubin AST ALT Alkaline Phosphatase Troponin I 0.26 H Total Protein Albumin Lipase Urine Color Urine Clarity Urine pH Ur Specific Reading Urine Protein Urine Glucose (UA) Urine Ketones Urine Occult Blood Urine Nitrate Urine Bilirubin Urine Urobilinogen Ur Leukocyte Esterase Urine RBC Urine WBC Ur Squamous Epith Cells Hyaline Casts Granular Casts Urine Mucus Micro UA Comment Ur Microscopic Review Urine Culture Comments - Imaging Impressions Abdomen/Pelvis CT 10/03/18 19:20 CONCLUSION: 1. No acute findings in the abdomen and pelvis. 2. Prominent degenerative is of lumbar spine. <Lida Simmons - Last Filed: 01/06/19 11:40> - Labs CBC & Chem 7: 10/04/18 01:42 10/04/18 01:42 Labs: Laboratory Results - last 24 hr 10/03/18 10/03/18 10/03/18 19:35 19:35 19:35 WBC 12.3 H RBC 5.16 Hgb 14.9 D Hct 43.6 MCV 84.5 MCH 29.0 MCHC 34.3 RDW 13.8 Plt Count 226 MPV 9.4 Neut % (Auto) 72.9 H Lymph % (Auto) 20.5 Parker % (Auto) 6.5 Eos % (Auto) 0.0 Baso % (Auto) 0.1 Neut # (Auto) 9.0 H Lymph # (Auto) 2.5 Parker # (Auto) 0.8 Eos # (Auto) 0.0 Baso # (Auto) 0.0 WBC Differential . Differential Comment Auto diff final Sodium 142 Potassium 3.8 Chloride 110 H Carbon Dioxide 23.1 Anion Gap 9 BUN 38 H Creatinine 1.37 H Estimated GFR 52 L Random Glucose 181 H Lactic Acid 1.6 Calcium 9.1 D Magnesium 2.9 H D Total Bilirubin 0.8 AST 91 H ALT 49 Alkaline Phosphatase 79 Troponin I 0.20 H Total Protein 7.9 D Albumin 4.0 D Lipase 102 Urine Color Urine Clarity Urine pH Ur Specific Reading Urine Protein Urine Glucose (UA) Urine Ketones Urine Occult Blood Urine Nitrate Urine Bilirubin Urine Urobilinogen Ur Leukocyte Esterase Urine RBC Urine WBC Ur Squamous Epith Cells Hyaline Casts Granular Casts Urine Mucus Micro UA Comment Ur Microscopic Review Urine Culture Comments 10/03/18 10/04/18 10/04/18 Unknown 01:42 01:42 WBC 10.9 RBC 5.11 Hgb 14.6 Hct 44.4 MCV 86.9 MCH 28.5 MCHC 32.8 RDW 13.7 Plt Count 213 MPV 9.0 Neut % (Auto) 79.5 H Lymph % (Auto) 14.9 Parker % (Auto) 5.1 Eos % (Auto) 0.1 Baso % (Auto) 0.4 Neut # (Auto) 8.6 H Lymph # (Auto) 1.6 Parker # (Auto) 0.6 Eos # (Auto) 0.0 Baso # (Auto) 0.0 WBC Differential . Differential Comment Auto diff final Sodium 144 Potassium 4.1 Chloride 111 H Carbon Dioxide 24.7 Anion Gap 8 BUN 29 H Creatinine 1.22 Estimated GFR 59 L Random Glucose 174 H Lactic Acid Calcium 8.5 Magnesium Total Bilirubin 0.6 AST 85 H ALT 50 Alkaline Phosphatase 74 Troponin I 0.33 H Total Protein 7.4 Albumin 3.7 Lipase Urine Color Yellow Urine Clarity Hazy H Urine pH 5.0 Ur Specific Reading 1.028 Urine Protein Negative Urine Glucose (UA) Negative Urine Ketones Trace H Urine Occult Blood Small H Urine Nitrate Negative Urine Bilirubin Negative Urine Urobilinogen Less than 2 Ur Leukocyte Esterase Negative Urine RBC Less than 1 Urine WBC 4 Ur Squamous Epith Cells 1 Hyaline Casts 4 Granular Casts 3 Urine Mucus Few H Micro UA Comment Culture not ind Ur Microscopic Review Not Reportable Urine Culture Comments Culture not ind 10/04/18 07:35 WBC RBC Hgb Hct MCV MCH MCHC RDW Plt Count MPV Neut % (Auto) Lymph % (Auto) Parker % (Auto) Eos % (Auto) Baso % (Auto) Neut # (Auto) Lymph # (Auto) Parker # (Auto) Eos # (Auto) Baso # (Auto) WBC Differential Differential Comment Sodium Potassium Chloride Carbon Dioxide Anion Gap BUN Creatinine Estimated GFR Random Glucose Lactic Acid Calcium Magnesium Total Bilirubin AST ALT Alkaline Phosphatase Troponin I 0.26 H Total Protein Albumin Lipase Urine Color Urine Clarity Urine pH Ur Specific Reading Urine Protein Urine Glucose (UA) Urine Ketones Urine Occult Blood Urine Nitrate Urine Bilirubin Urine Urobilinogen Ur Leukocyte Esterase Urine RBC Urine WBC Ur Squamous Epith Cells Hyaline Casts Granular Casts Urine Mucus Micro UA Comment Ur Microscopic Review Urine Culture Comments - Imaging Impressions Abdomen/Pelvis CT 10/03/18 19:20 CONCLUSION: 1. No acute findings in the abdomen and pelvis. 2. Prominent degenerative is of lumbar spine. <Crystal Plasencia - Last Filed: 10/04/18 13:32> Assessment and Plan - Plan - Abdominal pain- Possible PUD or Marijuana induced Patient was seen in ED yesterday for same complaints, and found to have possible ileus on CT Abd/Pelvis in addition to WENDI w/ creatinine 2.58 and elevated trop of 0.31, but pt LEFT AMA as he was feeling better. Repeat CT Abdomen/Pelvis with no acute findings. The pain started around Fri. Diffused, very strong, no radiation. Associated nausea but no vomiting. States hasn't been eating much. Took MOM to get relief when pain first started and had goo BM the following day but non since. Yesterday he was passing gas. States had similar episodes in the past about 3X in the past 3 yrs. He attributes sx to Marijuana use. He admits to chronic use of Advil maybe once a week for back pain. He denies alcohol intake but admits to drinking on through new , He never had EGD/colonoscopy before, but had had cologuard a yr which was negative. - Dehydration/ WENDI- improving - High troponin- possibly secondary to dehydration - Elevated WBC- Resolved , could be reactive - Elevated AST- Trending down. Likely secondary to alcohol intake. He denies alcohol intake but admits to drinking on through new . Plan - YOMI - EGD tomorrow - Consents - NPO mn - Iv hydration - Pain meds - Bowel regimen - Marijuana cessation - Pt seen and examined by Dr. Plasencia and myself and this note is written on her behalf. <Lida Simmons - Last Filed: 10/04/18 11:40> - Attending Attestation seen, examined agree with above patient aslo reports having increased etoh use since till recently states he worked in the yard yesterday without drinking water, became dehydrated feling better after anxiolytic cpk/cpk mb hepatitis profile states had cologuard test last year-negative <Crystal Plasencia - Last Filed: 10/04/18 13:32>
--- NOTE | 2018-10-04 15:24 | ECG ---
Date Performed: 10/03/2018 Time Performed: 21:58:29 PTAGE: 68 years EKG: Sinus rhythm POSSIBLE RIGHT VENTRICULAR CONDUCTION DELAY NONSPECIFIC T-WAVE ABNORMALITY BORDERLINE ECG Since PREVIOUS TRACING , no significant change noted PREVIOUS TRACIN10/03/2018 05.53 DOCTOR: Donny Vazquez Interpretating Date/Time 10/04/2018 15:22:16
[2018-10-04] MEDS: Sod Chloride 0.9% Inj 1,000 ML IV.CONT SCH ×2 (16:56→20:30)
[2018-10-04 20:01] LABS: CKMB Percent 0.5 % (0.0-4.0); Creatine Kinase MB 4.5 ng/mL (0.5-3.6)
[2018-10-04 20:30] LABS: Hepatitits B Surface Antigen Nonreactive (Nonreactive)
[2018-10-04 21:03] LABS: Hepatitis A IgM Antibody Nonreactive (Nonreactive)
--- NOTE | 2018-10-04 22:47 | P.PNIM ---
Subjective Interval history: not seen Physical Exam Vital signs: Last Vital Signs Temp 99 F 10/04/18 20:00 Pulse 68 10/04/18 21:00 Resp 24 10/04/18 20:00 BP 158/94 H 10/04/18 20:00 Pulse Ox 96 10/04/18 20:00 Intake & Output 10/02/18 10/03/18 10/04/18 10/05/18 06:59 06:59 06:59 06:59 Intake Total 500 / 500 1620 / 1620 Output Total 425 / 425 Balance 500 / 500 1195 / 1195 Weight 100.2 kg Narrative: GENERAL: Alert, NAD. SKIN: Warm and dry. HEAD: Normocephalic. EYES: No scleral icterus. No injection or drainage. NECK: Supple, trachea midline. No JVD or lymphadenopathy. CARDIOVASCULAR: Regular rate and rhythm without murmurs, gallops, or rubs. RESPIRATORY: Breath sounds equal bilaterally. No accessory muscle use. GASTROINTESTINAL: Abdomen soft, non-tender at the time of this exam, nondistended. MUSCULOSKELETAL: No cyanosis, or edema. BACK: Nontender without obvious deformity. No CVA tenderness. Results Labs CBC & Chem 7: 10/04/18 01:42 10/04/18 01:42 Imaging Imaging: ITS Impressions Abdomen/Pelvis CT 10/03/18 19:20 CONCLUSION: 1. No acute findings in the abdomen and pelvis. 2. Prominent degenerative is of lumbar spine. Assessment and Plan Plan Mr. Coffey is a pleasant 68-year-old male with a history of depression , hyperlipidemia, GERD who presented to the emergency department due to abdominal pain on 10/03/2018. In the morning of 10/03/2018, patient came to the emergency department for similar symptoms and he was offered admission. He left AMA. Patient underwent a CT abdomen pelvis in the morning of 10/03/2018 which showed a possible ileus. However, a second abdomen pelvis CT scan done on the same day in the evening did not show any remarkable findings. Patient was found to have significant elevation in blood pressure as well as mild elevation in troponins. On arrival, BP 236/123, HR 94, O2 sat 97% on RA, Afebrile. WBC 12.3, previously 17.3 on last visit this morning. Creatinine improved to 2.58 ==> 1.37. Troponin trended down to 0.20. Acute abdominal pain GERD Dysphagia and odynophagia Possible esophageal stricture Patient's abdominal pain is somewhat nonspecific and intermittent. Lipase level within normal range. We will consult gastroenterology for an evaluation and possible EGD. Continue Protonix IV push 40 mg twice daily. Continue normal saline at 100 cc/h. Acute kidney injury Creatinine was 2.5 8 in the morning of 10/03/2018. Likely due to hypovolemia. Currently creatinine is 1.22. Avoid nephrotoxins. Hypertensive urgency Possibly related to pain. However at the time of this interview, his pain was well controlled but his blood pressure was over 210 systolic. For now we will use clonidine 0.1 mg every 6 hours as needed for blood pressure above 175 systolic. If needed, will consider nifedipine XL for long-term blood pressure control. Alcohol abuse Continue [facility] protocol Clonidine for hypertensive urgency. Full code. SCDs for now. If prolonged hospitalization is expected, will consider pharmacological DVT prophylaxis.
[2018-10-05] MEDS: Pantoprazole Inj 40 MG Vial IV.PUSH SCH ×2 (00:29→11:53)
[2018-10-05 04:25] VITALS: RESP 18
[2018-10-05] MEDS: Sod Chloride 0.9% Inj 1,000 ML IV.CONT SCH ×2 (06:21→15:20)
--- NOTE | 2018-10-05 10:15 | P.PNIM ---
Subjective Interval history: Follow-up for abdominal pain, hypertensive urgency, acute kidney injury. Patient is currently doing well. Denies any chest pain, shortness of breath, fever or chills. He was supposed to have EGD this morning. However, he ate little bit afterward. His EGD is rescheduled for 1 PM this afternoon. Physical Exam Vital signs: Last Vital Signs Temp 98.2 F 10/05/18 04:00 Pulse 60 10/05/18 06:00 Resp 18 10/05/18 04:00 BP 122/74 10/05/18 04:00 Pulse Ox 95 10/05/18 04:00 Intake & Output 10/03/18 10/04/18 10/05/18 10/06/18 06:59 06:59 06:59 06:59 Intake Total 500 / 500 2100 / 2100 Output Total 1025 / 1025 Balance 500 / 500 1075 / 1075 Weight 100.2 kg 100 kg Narrative: GENERAL: Alert, NAD. SKIN: Warm and dry. HEAD: Normocephalic. EYES: No scleral icterus. No injection or drainage. NECK: Supple, trachea midline. No JVD or lymphadenopathy. CARDIOVASCULAR: Regular rate and rhythm without murmurs, gallops, or rubs. RESPIRATORY: Breath sounds equal bilaterally. No accessory muscle use. GASTROINTESTINAL: Abdomen soft, non-tender at the time of this exam, nondistended. MUSCULOSKELETAL: No cyanosis, or edema. BACK: Nontender without obvious deformity. No CVA tenderness. Results Labs CBC & Chem 7: 10/04/18 01:42 10/04/18 01:42 Assessment and Plan Plan Mr. Coffey is a pleasant 68-year-old male with a history of depression , hyperlipidemia, GERD who presented to the emergency department due to abdominal pain on 10/03/2018. In the morning of 10/03/2018, patient came to the emergency department for similar symptoms and he was offered admission. He left AMA. Patient underwent a CT abdomen pelvis in the morning of 10/03/2018 which showed a possible ileus. However, a second abdomen pelvis CT scan done on the same day in the evening did not show any remarkable findings. Patient was found to have significant elevation in blood pressure as well as mild elevation in troponins. On arrival, BP 236/123, HR 94, O2 sat 97% on RA, Afebrile. WBC 12.3, previously 17.3 on last visit this morning. Creatinine improved to 2.58 ==> 1.37. Troponin trended down to 0.20. Acute abdominal pain GERD Dysphagia and odynophagia Possible esophageal stricture Patient's abdominal pain is somewhat nonspecific and intermittent. Lipase level within normal range. GI evaluation appreciated. EGD this afternoon. Continue Protonix IV push 40 mg twice daily. Continue normal saline at 100 cc/h. Acute kidney injury Creatinine was 2.5 8 in the morning of 10/03/2018. Likely due to hypovolemia. Currently creatinine is 1.22 on 10/04/2018. Avoid nephrotoxins. Hypertensive urgency Possibly related to pain. Currently well controlled. For now we will use clonidine 0.1 mg every 6 hours as needed for blood pressure above 175 systolic. If needed, will consider nifedipine XL for long-term blood pressure control. Alcohol abuse Continue [facility] protocol Clonidine for hypertensive urgency. Full code. SCDs for now. Discharge plan: Probable discharge this afternoon after EGD.
[2018-10-05] MEDS ORDERED: clonazePAM 1 MG Tablet PO PRN (10:37)
--- NOTE | 2018-10-05 11:11 | P.EN ---
Patient scheduled for EGD today, not NPO, had grapes few hours ago. will reschedule for tomorrow.
[2018-10-05] MEDS: Senna/Docusate Sodium 8.6/50 MG Tablet PO SCH (11:35)
[2018-10-05 12:11] VITALS: BP 156/91; TEMP 97.6; O2SAT 98
[2018-10-05 15:31] VITALS: PULSE 67
== END 2018-10-05 16:26 | disposition left against medical advice (07) | DRG 392 ==
LOC: NEPC 17:46 → NEDA 22:47 → HCIS 10-04 00:59
PROVIDERS: ADMIT Hospitalist; ATTEND Hospitalist
DX: R11.0 Nausea; F10.10 Alcohol abuse, uncomplicated; K21.9 Gastro-esophageal reflux disease without esophagitis; E78.5 Hyperlipidemia, unspecified; I10 Essential (primary) hypertension; N17.9 Acute kidney failure, unspecified; R13.10 Dysphagia, unspecified; E86.0 Dehydration; I16.0 Hypertensive urgency; D72.829 Elevated white blood cell count, unspecified; F12.90 Cannabis use, unspecified, uncomplicated; F32.9 Major depressive disorder, single episode, unspecified; R10.9 Unspecified abdominal pain; Z87.11 Personal history of peptic ulcer disease
CPT/HCPCS: 74177; 80053; 80074; 81001; 82550; 82552; 83605; 83690; 83735; 84484; 85025; 90761; 90774; 90775; 90776; 90784; 93005; 96361; 96374; 96375; 96376; 99285; C8952; C9113; J1170; J2405; J7030; J7040; Q9967